=== PATIENT | male | born 1970 | race Caucasian/White ===

== ENCOUNTER 2017-05-31 12:47 | Emergency (ER) | payer OTHER ==
[~2017-05-31] VITALS: Ht 172.7 cm; Wt 98.0 kg
[~2017-05-31 12:47] MED LIST: ALBU90OI INH; ALBU90OI61 INH; ALPR.25 PO; ALPR.5 PO; ALPR1 PO; AMOCLA875 PO; ANTABUSE; ASPI325EC PO; ASPI81CH PO; Amitriptyline100 MG PO; Bactroban22 GM TOP; CEPH500 PO; CHLO10 PO; CHLO25 PO; CITA20; Cleocin HCl300 MG PO; DULO30; DULO30 PO; DULO60 PO; FURO20 PO; GABA300 PO; HYDACE5 PO; HYDPAM25 PO; HYDR1TAB94 PO; IBUP600 PO; IBUP800 PO; K-Dur20 MEQ PO; LITH300C; LORA.5 PO; LORA1 PO; LORA2; LORAZEPAM; MUSCLE RELAXER; NADO20 PO; NAPR500 PO; Norco 5-325 Ta1 EACH PO; OLAN10; OLAN10 PO; OLAN2.5 PO; OLAN5 PO; OMEP10ER; OMEP10ER PO; OMEP20ER PO; OMEP40CA12 PO; OXYACE5T PO; OXYASA5T PO; PENVK500 PO; POTCHL20ER PO; PROACE100 PO; PROM25 PO; Prilosec Otc20 MG PO; ROXICODONE5 MG PO; SILD50TA PO; THIA100 PO; TRAM50 PO; TRAZADONE; VITAMIN B12-FO1 EACH PO; Ventolin Soln3 ML INH; XANEX; Zyprexa10 MG PO; Zyprexa20 MG; [UNRECOGNIZED DRUG - REMARK]
[2017-05-31] MEDS ORDERED: Crutch1 EACH MISC (14:20)
[2017-10-21] MEDS ORDERED: QUET100 PO (13:37)
[2017-10-21] MEDS ORDERED: TOPI50 PO (13:37)
[2018-03-05] MEDS ORDERED: K-Dur 20 meq T20 MEQ PO (20:05)
== END 2017-05-31 14:31 | disposition home or self-care (01) ==
LOC: ER 12:47
DX: S93.324A Dislocation of tarsometatarsal joint of right foot, initial encounter (principal); F31.9 Bipolar disorder, unspecified; F41.9 Anxiety disorder, unspecified; J45.909 Unspecified asthma, uncomplicated; Z79.899 Other long term (current) drug therapy; Z79.82 Long term (current) use of aspirin; F17.200 Nicotine dependence, unspecified, uncomplicated; X58.XXXA Exposure to other specified factors, initial encounter
CPT/HCPCS: 73630; 99283

== ENCOUNTER 2017-10-28 17:04 | Emergency (ER) | payer OTHER ==
[~2017-10-28] VITALS: Ht 172.7 cm; Wt 72.6 kg
[~2017-10-28 17:04] MED LIST changes: +Crutch1 EACH MISC; +QUET100 PO; +TOPI50 PO
== END 2017-10-28 22:32 | disposition home or self-care (01) ==
LOC: ER 17:04
DX: S20.212A Contusion of left front wall of thorax, initial encounter (principal); Z79.899 Other long term (current) drug therapy; F31.9 Bipolar disorder, unspecified; F41.9 Anxiety disorder, unspecified; F17.210 Nicotine dependence, cigarettes, uncomplicated; Y04.2XXA Assault by strike against or bumped into by another person, initial encounter
CPT/HCPCS: 71045; 99283

== ENCOUNTER 2017-10-28 23:39 | Emergency (ER) | payer OTHER ==
[~2017-10-28] VITALS: Ht 172.7 cm; Wt 72.6 kg
== END 2017-10-29 06:46 | disposition left against medical advice (07) ==
LOC: ER 23:39
DX: Z53.21 Procedure and treatment not carried out due to patient leaving prior to being seen by health care provider (principal)

== ENCOUNTER 2017-10-31 11:50 | Emergency (ER) | payer OTHER ==
[~2017-10-31] VITALS: Ht 172.7 cm; Wt 74.8 kg
[2017-10-31] MEDS ORDERED: [UNRECOGNIZED DRUG - OTHER] TOP (12:12)
== END 2017-10-31 12:16 | disposition home or self-care (01) ==
LOC: ER 11:50
DX: B35.3 Tinea pedis (principal); Z79.899 Other long term (current) drug therapy; F31.9 Bipolar disorder, unspecified; F41.9 Anxiety disorder, unspecified; J45.909 Unspecified asthma, uncomplicated; F17.210 Nicotine dependence, cigarettes, uncomplicated
CPT/HCPCS: 99282

== ENCOUNTER → 2018-06-21 | Outpatient (CLI) | payer OTHER ==
[~2018-06-21] MED LIST changes: +K-Dur 20 meq T20 MEQ PO; +[UNRECOGNIZED DRUG - OTHER] TOP
[2018-06-21 16:43] LABS: Alanine Aminotransfer (ALT/SGP 25 U/L (12-78); Albumin, Blood 3.4 g/dL (3.4-5.0); Albumin/Globulin Ratio 0.9 (0.8-1.8); Alk Phos 83 U/L (50-136); Anion Gap 7 mmol/L (6-16); Aspartate Aminotrans (AST/SGOT 17 U/L (12-37); Bilirubin, Direct <0.1 mg/dL (0.0-0.3); Bilirubin, Total 0.3 mg/dL (0.1-1.0); Blood Urea Nitrogen 14 mg/dL (8-24); Bun/Creatinine Ratio 13.5 (12.0-20.0); CHOL/HDL RATIO 2.5; CO2, Blood 27 mmol/L (21-32); Calcium, Blood 8.7 mg/dL (8.5-10.1); Chloride, Blood 102 mmol/L (98-108); Cholesterol 161 mg/dL (50-200); Creatinine, Blood 1.04 mg/dL (0.60-1.20); Globulin, Blood 3.6 g/dL (2.2-4.0); Glomerular Filtration Rate >60 (60-); Glucose, Blood 169 mg/dL (70-99); HDL Cholesterol 64 mg/dL (>39); LDL/HDL RATIO 1.2; Low Density Lipoprotein Chol 76 mg/dL (0-110); Phosphorus, Blood 4.1 mg/dL (2.5-4.9); Potassium, Blood 4.5 mmol/L (3.5-5.5); Sodium, Blood 136 mmol/L (136-145); Triglycerides 107 mg/dL (30-160); Very Low Density Lipoprot Chol 21 mg/dL (6-32)
[2018-06-21 16:47] LABS: Bilirubin, Indirect Unable to Calculate mg/dL (0.1-0.7)
== END ==
LOC: LAB SHORT 16:07 → LAB 16:07
PROVIDERS: Registered Nurse
DX: Z51.81 Encounter for therapeutic drug level monitoring (principal); Z79.899 Other long term (current) drug therapy
CPT/HCPCS: 80053; 80061; 80178; 82248; 84100; 84443

== ENCOUNTER 2018-07-28 19:48 | Emergency (ER) | payer OTHER ==
[~2018-07-28] VITALS: Ht 172.7 cm; Wt 72.6 kg
[2018-07-28] MEDS ORDERED: Seroquel Xr300 MG PO (20:32)
[2018-07-28] MEDS ORDERED: Robaxin500 MG PO (21:28)
== END 2018-07-28 21:36 | disposition home or self-care (01) ==
LOC: ER 19:48
DX: S39.012A Strain of muscle, fascia and tendon of lower back, initial encounter (principal); X58.XXXA Exposure to other specified factors, initial encounter; Z79.899 Other long term (current) drug therapy; J45.909 Unspecified asthma, uncomplicated; F17.210 Nicotine dependence, cigarettes, uncomplicated
CPT/HCPCS: 96372; 99283-25; J1100

== ENCOUNTER 2018-08-07 15:12 | Inpatient (IN) | payer OTHER ==
[~2018-08-07] VITALS: Ht 172.7 cm; Wt 70.7 kg
[~2018-08-07 15:12] MED LIST changes: +Robaxin500 MG PO; +Seroquel Xr300 MG PO
[2018-08-07 16:06] LABS: BASOPHILS ABSOLUTE AUTO 0.07 K/mm3 (0.00-0.23); BASOPHILS PERCENT AUTO 1 % (0-2); EOSINOPHILS ABSOLUTE AUTO 0.05 K/mm3 (0.00-0.68); EOSINOPHILS PERCENT AUTO 1 % (0-6); Hematocrit 43.7 % (37.0-53.0); Hemoglobin 13.7 g/dL (13.5-17.5); IMMATURE GRAN ABSOLUTE AUTO 0.05 K/mm3 (0.00-0.10); IMMATURE GRAN PERCENT AUTO 1 % (0-1); LYMPHOCYTES ABSOLUTE AUTO 1.96 K/mm3 (0.84-5.20); LYMPHOCYTES PERCENT AUTO 20 % (21-46); MONOCYTES PERCENT AUTO 8 % (4-13); Mean Corpuscular HGB Conc 31.4 g/dL (31.5-36.5); Mean Corpuscular Volume 89 fL (80-100); NEUTROPHILS ABSOLUTE AUTO 7.14 K/mm3 (1.96-9.15); NEUTROPHILS PERCENT AUTO 71 % (41-73); Platelet Count 380 K/mm3 (150-400); RDW Coefficient Variation 19.8 % (11.7-14.2); RDW Standard Deviation 64.8 fL (35.1-46.3); Red Blood Cell Count 4.89 M/mm3 (4.30-5.90); White Blood Cell Count 10.07 K/mm3 (4.00-11.30)
[2018-08-07 16:28] LABS: Albumin, Blood 4.2 g/dL (3.4-5.0); Albumin/Globulin Ratio 1.1 (0.8-1.8); Bilirubin, Total 0.3 mg/dL (0.1-1.0); Bun/Creatinine Ratio 13.6 (12.0-20.0); Calcium, Blood 8.7 mg/dL (8.5-10.1); Creatinine, Blood 1.76 mg/dL (0.60-1.20); Globulin, Blood 3.9 g/dL (2.2-4.0); Potassium, Blood 3.8 mmol/L (3.5-5.5); Total Protein, Blood 8.1 g/dL (6.4-8.2)
[2018-08-07 21:03] LABS: Source, Urine Clean Catch
[2018-08-07 21:17] LABS: Appearance, Urine Clear (Clear); Blood, Urine 1+ (Neg); Color, Urine Amber (P-Yellow); Glucose Qualitative, Urine Neg (Neg); Ketones, Urine 2+ (Neg); Leukocyte Esterase, Urine 1+ (Neg); Nitrite, Urine Neg (Neg); Protein, Urine 2+ (Neg); Specific Gravity, Urine 1.025 (1.003-1.022); Urobilinogen, Urine NORM (Normal)
[2018-08-07 21:23] LABS: Bilirubin, Urine 1+ (Neg); Red Blood Cells, Urine 0-2 /hpf (0-2)
[2018-08-07 21:24] LABS: Bacteria Many /hpf; Hyaline Casts TNTC /lpf (0-2); Mucus Heavy (0-Heavy); Squamous Epithelial Cells Not Seen /hpf (Few)
[2018-08-07 21:33] LABS: U Amphetamine Screen DETECTED; U Methamphetamine Screen DETECTED
[2018-08-07 21:34] LABS: U Barbituate Screen Not Detected; U Benzodiazapine Screen Not Detected; U Buprenorphine Screen Not Detected; U Cannabinoids Screen DETECTED; U Cocaine Screen Not Detected; U Methadone Screen Not Detected; U Opiates Screen DETECTED; U Oxycodone Screen Not Detected; U Phencyclidine Screen Not Detected; U Propoxyphene Screen Not Detected
[2018-08-08 06:51] LABS: Hematocrit 34.3 % (37.0-53.0); Hemoglobin 11.2 g/dL (13.5-17.5); Mean Corpuscular HGB 28.6 pg (26.0-34.0); Mean Corpuscular HGB Conc 32.7 g/dL (31.5-36.5); Mean Corpuscular Volume 88 fL (80-100); Mean Platelet Volume 9.2 fL (9.1-12.4); Platelet Count 166 K/mm3 (150-400); RDW Coefficient Variation 19.9 % (11.7-14.2); RDW Standard Deviation 63.7 fL (35.1-46.3); Red Blood Cell Count 3.92 M/mm3 (4.30-5.90); White Blood Cell Count 3.88 K/mm3 (4.00-11.30)
[2018-08-08 07:22] LABS: Alanine Aminotransfer (ALT/SGP 28 U/L (12-78); Alk Phos 72 U/L (50-136); Anion Gap 8 mmol/L (6-16); Aspartate Aminotrans (AST/SGOT 32 U/L (12-37); Bilirubin, Total 0.6 mg/dL (0.1-1.0); Blood Urea Nitrogen 24 mg/dL (8-24); Bun/Creatinine Ratio 22.6 (12.0-20.0); CO2, Blood 24 mmol/L (21-32); Calcium, Blood 7.3 mg/dL (8.5-10.1); Chloride, Blood 105 mmol/L (98-108); Creatinine, Blood 1.06 mg/dL (0.60-1.20); Globulin, Blood 2.9 g/dL (2.2-4.0); Glomerular Filtration Rate >60 (60-); Glucose, Blood 116 mg/dL (70-99); Potassium, Blood 3.3 mmol/L (3.5-5.5); Sodium, Blood 137 mmol/L (136-145)
[2018-08-08 07:31] LABS: Total Protein, Blood 5.9 g/dL (6.4-8.2)
--- NOTE | 2018-08-08 19:42 | NUR ---
END OF SHIFT SUMMARY ASSUMED CARE OF PT AROUND 1600. PT TO ROOM VIA ER BED. REPORT GIVEN BY SOWMYA CARTAGENA. PT ORIENTED TO ROOM. ROOM CLEARED PER PROTOCOL, MANAGER RELATIONSHIP NOTIFIED OF NEED TO TURN CAMERA MONITORING ON, PT BELONGINGS REMOVED EXCEPT PHONE AND PRESSURE CONTROLLER. CIWA 5 UPON INITIAL ASSESMENT. ATIVAN ORDERS CLARIFIED WITH DR SAM. SCHEDULED ATIVAN DC'D, PRN R/T CIWA KEPT IN PLACE. PT STATES NO SI AT TIME OF ADMISSION TO UNIT BUT STATES IT COMES AND GOES. PT COOPERATIVE WITH STAFF. PT RESTING MAJORITY OF REMAINDER OF SHIFT.
--- NOTE | 2018-08-09 04:43 | NUR ---
SHIFT SUMMARY: PATIENT VERY IMPULSIVE, GETTING OOB WITHOUT USING CALL LIGHT, PULLED OUT IV SO HE COULD GO USE THE RESTROOM. PATIENT STILL REDIRECTABLE BUT SPEECH IS BECOMING DIFFICULT TO UNDERSTAND, VSS, CIWA RANGING FROM 11 TO 21. PATIENT RESPONDING WELL TO ATIVAN. NURSING ROUNDS INCREASED, ROOM CHECK COMPLETED WITH EACH ROUND, PATIENT BELONGINGS LOCKED IN DESIGNATED CABINET. ALL PROTOCOLS FOR SI AND CIWA OBSERVED. BED LOW AND LOCKED.
[2018-08-09 08:34] LABS: BASOPHILS ABSOLUTE AUTO 0.01 K/mm3 (0.00-0.23); BASOPHILS PERCENT AUTO 0 % (0-2); EOSINOPHILS ABSOLUTE AUTO 0.18 K/mm3 (0.00-0.68); EOSINOPHILS PERCENT AUTO 7 % (0-6); Hematocrit 34.6 % (37.0-53.0); Hemoglobin 10.9 g/dL (13.5-17.5); IMMATURE GRAN ABSOLUTE AUTO 0.01 K/mm3 (0.00-0.10); IMMATURE GRAN PERCENT AUTO 0 % (0-1); LYMPHOCYTES ABSOLUTE AUTO 0.81 K/mm3 (0.84-5.20); LYMPHOCYTES PERCENT AUTO 30 % (21-46); MONOCYTES PERCENT AUTO 8 % (4-13); Mean Corpuscular HGB 28.2 pg (26.0-34.0); Mean Corpuscular HGB Conc 31.5 g/dL (31.5-36.5); Mean Corpuscular Volume 89 fL (80-100); Mean Platelet Volume 9.4 fL (9.1-12.4); NEUTROPHILS ABSOLUTE AUTO 1.46 K/mm3 (1.96-9.15); NEUTROPHILS PERCENT AUTO 55 % (41-73); Platelet Count 198 K/mm3 (150-400); RDW Coefficient Variation 19.9 % (11.7-14.2); RDW Standard Deviation 64.6 fL (35.1-46.3); Red Blood Cell Count 3.87 M/mm3 (4.30-5.90); White Blood Cell Count 2.67 K/mm3 (4.00-11.30)
[2018-08-09 08:46] LABS: Albumin, Blood 2.8 g/dL (3.4-5.0); Anion Gap 5 mmol/L (6-16); Blood Urea Nitrogen 15 mg/dL (8-24); Bun/Creatinine Ratio 20.1 (12.0-20.0); CO2, Blood 25 mmol/L (21-32); Chloride, Blood 111 mmol/L (98-108); Creatinine, Blood 0.75 mg/dL (0.60-1.20); Glomerular Filtration Rate >60 (60-); Glucose, Blood 101 mg/dL (70-99); Phosphorus, Blood 2.4 mg/dL (2.5-4.9); Potassium, Blood 3.8 mmol/L (3.5-5.5); Sodium, Blood 141 mmol/L (136-145)
[2018-08-09 11:00] LABS: Percent Saturation 7.6 % (20.0-50.0)
--- NOTE | 2018-08-09 18:37 | NUR ---
SHIFT SUMMARY PT RESTING IN BED THROUGHOUT THE DAY. DENIES PAIN, DENIES SUICIDAL IDEATION. PT AWARE OF SUICIDE RESTRICTIONS AND SAFETY, VERBALIZES UNDERSTANDING. C/O JOINT AND BACK PAIN, RATING 4-7/10, PT REPOSITIONED NEEDED INDEPENDENTLY. LUNG SOUNDS CLEAR, NSR RATE 79 PER TELEMETRY. NON-PITTING EDEMA NOTED TO LEFT HAND, ICE APPLIED, ENCOURAGED PT TO ELEVATE HAND. DR. MELTON SAW PT TODAY AND RELEASED HIM FROM 2MD HOLD AND SUICIDE RISK. PT AWAITING PLACEMENT IN INPT REHAB. PT AMBULATING IN ROOM, TOOK A SHOWER THIS AFTERNOON, TOLERATED WELL. CIWA LEVEL 0-10 TODAY, MEDICATED PER EMAR. WILL CONTINUE TO MONITOR.
[2018-08-10 04:04] LABS: BASOPHILS ABSOLUTE AUTO 0.02 K/mm3 (0.00-0.23); BASOPHILS PERCENT AUTO 1 % (0-2); EOSINOPHILS ABSOLUTE AUTO 0.19 K/mm3 (0.00-0.68); EOSINOPHILS PERCENT AUTO 6 % (0-6); Hematocrit 35.3 % (37.0-53.0); Hemoglobin 11.1 g/dL (13.5-17.5); IMMATURE GRAN ABSOLUTE AUTO 0.02 K/mm3 (0.00-0.10); IMMATURE GRAN PERCENT AUTO 1 % (0-1); LYMPHOCYTES ABSOLUTE AUTO 1.04 K/mm3 (0.84-5.20); LYMPHOCYTES PERCENT AUTO 33 % (21-46); MONOCYTES ABSOLUTE AUTO 0.21 K/mm3 (0.16-1.47); MONOCYTES PERCENT AUTO 7 % (4-13); Mean Corpuscular HGB 28.9 pg (26.0-34.0); Mean Corpuscular HGB Conc 31.4 g/dL (31.5-36.5); Mean Corpuscular Volume 92 fL (80-100); Mean Platelet Volume 10.3 fL (9.1-12.4); NEUTROPHILS ABSOLUTE AUTO 1.65 K/mm3 (1.96-9.15); NEUTROPHILS PERCENT AUTO 53 % (41-73); Platelet Count 219 K/mm3 (150-400); RDW Standard Deviation 68.1 fL (35.1-46.3); Red Blood Cell Count 3.84 M/mm3 (4.30-5.90); White Blood Cell Count 3.13 K/mm3 (4.00-11.30)
[2018-08-10 04:19] LABS: Albumin, Blood 2.9 g/dL (3.4-5.0); Anion Gap 7 mmol/L (6-16); Blood Urea Nitrogen 17 mg/dL (8-24); CO2, Blood 24 mmol/L (21-32); Calcium, Blood 8.7 mg/dL (8.5-10.1); Chloride, Blood 110 mmol/L (98-108); Creatinine, Blood 0.74 mg/dL (0.60-1.20); Glomerular Filtration Rate >60 (60-); Glucose, Blood 116 mg/dL (70-99); Phosphorus, Blood 3.7 mg/dL (2.5-4.9); Potassium, Blood 4.1 mmol/L (3.5-5.5); Sodium, Blood 141 mmol/L (136-145)
--- NOTE | 2018-08-10 04:59 | NUR ---
SHIFT SUMMARY PT A&O X4, CALM AND COOPERATIVE W/OUT SIGNS OF ANXIETY, PAIN, OR AGITATION. PT DENIES SUICIDAL IDEATION. PT CIWA SCORE "1" T/O SHIFT. LUNG SOUNDS CLEAR T/O. SPO2 > 92% ON RA. MONITOR SHOWS NSR, HR 70'S. PT SLEEPING MAJORITY OF SHIFT, WAKES UP PLEASANTLY FOR CARE. WILL CONTINUE TO MONITOR AND PROVIDE CARE UNTIL REPORT OFF TO DAY SHIFT RN.
--- NOTE | 2018-08-10 09:35 | NUR ---
Assumed Care: Assumed care of pt at approx 0700. VSS. In no apparent sign of distress. Pt is A&Ox4, but c/o seeing and hearing "two figures" in room this AM when nobody was present in room. Pt c/o increasing symptoms of withdrawal from alcohol. Most recent CIWA score of 8. See shift assessment for detailed assessment. Currently resting in bed with call light within reach. denies any further questions, complaints or requests at this time. Will continue to monitor.
--- NOTE | 2018-08-10 15:12 | NUR ---
Transfer: Transferred pt at approx 1420. VSS. In no apparent sign of distress. Pt requesting something for back pain and orders received from Dr. Parks before transfer. Pt denies any questions, complaints or reqeusts at time of transfer.
--- NOTE | 2018-08-10 17:29 | NUR ---
RECEIVED TO RM [id number] FROM [facility] AT 1435 BY W/C. HE IS A&O. HE IS QUIET, SITTING STYLE ON THE BED. HE IS ROCKING BACK AND FORTH LIGHTLY. HE SAYS HIS PAIN IS STARTING TO IMPROVE IN HIS BACK AFTER A SHOWER, LIDOCAINE PATCH APPLIED AND SOME TYLENOL. ORIENTED TO THE ROOM.
--- NOTE | 2018-08-10 17:31 | NUR ---
HE HAS RECEIVED A DOSE OF LIBRIUM SINCE ARRIVAL. HE FELT HE NEEDED IT. IF HE HADN'T REQUESTED IT, I WOULD NOT HAVE NOTICED HIS ANXIETY YET. HE CONFIRMS HE IS CONFIDENTIAL.
--- NOTE | 2018-08-10 19:37 | NUR ---
HIS LAST CIWA WAS 7. HIS HIGHEST SCORE IS ANXIETY, THEN H/A. HE REMAINS PLEASANT AND COOPERATIVE.
--- NOTE | 2018-08-11 05:15 | NUR ---
HAT FINISHER SUMMARY NO ACUTE CHANGES THIS SHIFT. PT AAOX4 AND PLEASANT. INDEPENDENT IN ROOM. STABLE WITHDRAWAL WITH CIWA OF 7, MAINLY DUE TO HEADACHE AND ANXIETY. ANXIETY RELIEVED WITH BEDTIME ELAVIL AND SEROQUEL AND HEADACHE TREATED WITH TYLENOL. PT HAS SLEPT THROUGH THE NIGHT WITH NO COMPLAINTS. PT EAGER TO BE DISCHARGED TO AN INPATIENT REHAB FACILITY. VSS, WILL CONTINUE TO MONITOR.
[2018-08-11] MEDS ORDERED: Ferrous Sulfat325 M2 PO (15:17)
[2018-08-11] MEDS ORDERED: CYAN500 PO (15:17)
--- NOTE | 2018-08-11 15:38 | NUR ---
PATIENT DISCHARGE THE PATIENT WAS DISCHARGED HOME AFTER DISCHARGE INSTRUCTIONS WERE GIVEN TO THE PATIENT. THEW PATIEBNT WAS INSTRUCTED TO PICK HIS PRESCRIPTIONS AT [facility] REQUESTED AND TO FOLLOW UP WITH A PCP. THE PATIENT WALKED OUT OF THE HOSPITAL WITHOUT CONCERN OR COMPLAINT.
== END 2018-08-11 15:40 | disposition home or self-care (01) | DRG 897 ==
LOC: ER 15:12 → EOR 15:13 → PCU 15:13 → MEDS 08-10 14:29
PROVIDERS: Family Medicine; Internal Medicine; Physician Assistant; ADMIT Emergency Medicine
DX: F10.239 Alcohol dependence with withdrawal, unspecified (principal); D61.818 Other pancytopenia; F33.3 Major depressive disorder, recurrent, severe with psychotic symptoms; N17.9 Acute kidney failure, unspecified; R45.851 Suicidal ideations; E86.0 Dehydration; E87.6 Hypokalemia; F17.210 Nicotine dependence, cigarettes, uncomplicated; F19.10 Other psychoactive substance abuse, uncomplicated; F25.1 Schizoaffective disorder, depressive type; F31.9 Bipolar disorder, unspecified; I10 Essential (primary) hypertension; J45.909 Unspecified asthma, uncomplicated; E53.8 Deficiency of other specified B group vitamins; E61.1 Iron deficiency; Y90.2 Blood alcohol level of 40-59 mg/100 ml
CPT/HCPCS: 36415; 80053; 80069; 81001; 82607; 82728; 82746; 83540; 83550; 85025; 85027; 87086; 96361; 96365; 96366; 96372-59; 96375; 99285-25; G0378; G0480; J1630; J1650; J2060; J2405; J3475; J7030; J7042; Q3014

== ENCOUNTER 2018-09-19 09:26 | Emergency (ER) | payer OTHER ==
[~2018-09-19] VITALS: Ht 175.3 cm; Wt 72.6 kg
[~2018-09-19 09:26] MED LIST changes: +CYAN500 PO; +Ferrous Sulfat325 M2 PO
[2018-09-19] MEDS ORDERED: Ultram50 MG PO (12:00)
== END 2018-09-19 13:43 | disposition home or self-care (01) ==
LOC: ER 09:26
DX: R13.10 Dysphagia, unspecified (principal); R07.89 Other chest pain; W19.XXXA Unspecified fall, initial encounter; Z79.899 Other long term (current) drug therapy; F41.9 Anxiety disorder, unspecified; J45.909 Unspecified asthma, uncomplicated; F17.200 Nicotine dependence, unspecified, uncomplicated
CPT/HCPCS: 70360; 71100; 99283-25

== ENCOUNTER 2018-11-06 10:08 | Day surgery (SDC) | payer OTHER ==
[~2018-11-06] VITALS: Ht 175.3 cm; Wt 75.6 kg
[~2018-11-06 10:08] MED LIST changes: +ACET500 PO; +AMIT50 PO; +QUET200 PO; +Seroquel Xr150 MG PO; +Ultram50 MG PO
--- NOTE | 2018-11-06 11:46 | NUR ---
11/06/18 1145 Maye Azevedo FLUIDS OPEN WIDE PER DR. DOM Cunningham TO GIVE ONE LITER OF FLUID.
== END 2018-11-06 12:48 | disposition home or self-care (01) ==
LOC: ORSCSDS 10:08
PROVIDERS: Student in an Organized Health Care Education/Training Program
PROC: 0DB98ZX Excision of Duodenum, Via Natural or Artificial Opening Endoscopic, Diagnostic (ICD-10-PCS; principal; 2018-11-06 11:30)
PROC: 0DB68ZX Excision of Stomach, Via Natural or Artificial Opening Endoscopic, Diagnostic (ICD-10-PCS; principal; 2018-11-06 11:30)
PROC: 0DB58ZX Excision of Esophagus, Via Natural or Artificial Opening Endoscopic, Diagnostic (ICD-10-PCS; principal; 2018-11-06 11:30)
DX: K21.0 Gastro-esophageal reflux disease with esophagitis (principal); R13.10 Dysphagia, unspecified; K29.70 Gastritis, unspecified, without bleeding; K44.9 Diaphragmatic hernia without obstruction or gangrene; F17.210 Nicotine dependence, cigarettes, uncomplicated; J45.909 Unspecified asthma, uncomplicated; Z79.899 Other long term (current) drug therapy
CPT/HCPCS: 88305; 88312; 88341; 88342; J2704; J7120

== ENCOUNTER 2018-11-14 16:53 | Emergency (ER) | payer OTHER ==
[~2018-11-14] VITALS: Ht 175.3 cm; Wt 72.6 kg
[2018-11-14] MEDS ORDERED: CHLO25 PO (18:10)
== END 2018-11-14 18:27 | disposition home or self-care (01) ==
LOC: ER 16:53
DX: F10.239 Alcohol dependence with withdrawal, unspecified (principal); S90.31XA Contusion of right foot, initial encounter; X58.XXXA Exposure to other specified factors, initial encounter; Z88.8 Allergy status to other drugs, medicaments and biological substances; Z79.899 Other long term (current) drug therapy; F41.9 Anxiety disorder, unspecified; J45.909 Unspecified asthma, uncomplicated; F17.210 Nicotine dependence, cigarettes, uncomplicated
CPT/HCPCS: 73630; 99284-25

== ENCOUNTER 2018-11-19 05:56 | Emergency (ER) | payer OTHER ==
[~2018-11-19] VITALS: Ht 175.3 cm; Wt 74.8 kg
[2018-11-19] MEDS ORDERED: Naprosyn500 MG PO (07:28)
[2018-11-19] MEDS ORDERED: Cyclobenzaprine5 MG PO (07:28)
== END 2018-11-19 08:05 | disposition home or self-care (01) ==
LOC: ER 05:56
DX: G89.29 Other chronic pain (principal); M54.5 Low back pain; Z88.8 Allergy status to other drugs, medicaments and biological substances; Z79.899 Other long term (current) drug therapy; J45.909 Unspecified asthma, uncomplicated; F17.210 Nicotine dependence, cigarettes, uncomplicated
CPT/HCPCS: 99283

== ENCOUNTER 2018-11-25 20:13 | Emergency (ER) | payer OTHER ==
[~2018-11-25] VITALS: Ht 172.7 cm; Wt 72.6 kg
[~2018-11-25 20:13] MED LIST changes: +Cyclobenzaprine5 MG PO; +Naprosyn500 MG PO
[2018-11-25] MEDS ORDERED: FERSU300 PO (20:48)
[2018-11-25 20:50] LABS: BASOPHILS ABSOLUTE AUTO 0.03 K/mm3 (0.00-0.23); BASOPHILS PERCENT AUTO 1 % (0-2); EOSINOPHILS ABSOLUTE AUTO 0.15 K/mm3 (0.00-0.68); EOSINOPHILS PERCENT AUTO 3 % (0-6); Hematocrit 38.3 % (37.0-53.0); Hemoglobin 12.2 g/dL (13.5-17.5); IMMATURE GRAN ABSOLUTE AUTO 0.02 K/mm3 (0.00-0.10); IMMATURE GRAN PERCENT AUTO 0 % (0-1); LYMPHOCYTES ABSOLUTE AUTO 0.66 K/mm3 (0.84-5.20); LYMPHOCYTES PERCENT AUTO 11 % (21-46); MONOCYTES ABSOLUTE AUTO 0.56 K/mm3 (0.16-1.47); MONOCYTES PERCENT AUTO 9 % (4-13); Mean Corpuscular HGB Conc 31.9 g/dL (31.5-36.5); Mean Corpuscular Volume 91 fL (80-100); Mean Platelet Volume 10.1 fL (9.1-12.4); NEUTROPHILS ABSOLUTE AUTO 4.53 K/mm3 (1.96-9.15); NEUTROPHILS PERCENT AUTO 76 % (41-73); Platelet Count 230 K/mm3 (150-400); RDW Coefficient Variation 18.1 % (11.7-14.2); RDW Standard Deviation 60.5 fL (35.1-46.3); Red Blood Cell Count 4.21 M/mm3 (4.30-5.90); White Blood Cell Count 5.95 K/mm3 (4.00-11.30)
[2018-11-25 21:08] LABS: Alanine Aminotransfer (ALT/SGP 30 U/L (12-78); Albumin, Blood 3.6 g/dL (3.4-5.0); Albumin/Globulin Ratio 1.1 (0.8-1.8); Alk Phos 113 U/L (50-136); Anion Gap 10 mmol/L (6-16); Aspartate Aminotrans (AST/SGOT 31 U/L (12-37); Bilirubin, Total 0.4 mg/dL (0.1-1.0); Blood Urea Nitrogen 14 mg/dL (8-24); CO2, Blood 24 mmol/L (21-32); Calcium, Blood 8.6 mg/dL (8.5-10.1); Chloride, Blood 105 mmol/L (98-108); Creatinine, Blood 1.08 mg/dL (0.60-1.20); Globulin, Blood 3.4 g/dL (2.2-4.0); Glomerular Filtration Rate >60 (60-); Glucose, Blood 261 mg/dL (70-99); Potassium, Blood 2.9 mmol/L (3.5-5.5); Sodium, Blood 139 mmol/L (136-145)
[2018-11-25] MEDS ORDERED: POTCHL20ER PO (21:30)
== END 2018-11-25 21:40 | disposition home or self-care (01) ==
LOC: ER 20:13
PROVIDERS: Emergency Medicine
DX: F11.10 Opioid abuse, uncomplicated (principal); F15.10 Other stimulant abuse, uncomplicated; E87.6 Hypokalemia; R09.02 Hypoxemia; J45.909 Unspecified asthma, uncomplicated; I10 Essential (primary) hypertension; G89.29 Other chronic pain; F17.210 Nicotine dependence, cigarettes, uncomplicated
CPT/HCPCS: 36415; 71045; 80053; 85025; 93005; 93010; 99284-25

== ENCOUNTER 2018-12-16 20:25 | Observation (INO) | payer OTHER ==
[~2018-12-16] VITALS: Ht 172.7 cm; Wt 74.8 kg
[~2018-12-16 20:25] MED LIST changes: +FERSU300 PO
[2018-12-17 01:44] LABS: Source, Urine Clean Catch
[2018-12-17 01:48] LABS: Bilirubin, Urine Neg (Neg); Blood, Urine Neg (Neg); Glucose Qualitative, Urine Neg (Neg); Ketones, Urine Neg (Neg); Leukocyte Esterase, Urine Neg (Neg); Nitrite, Urine Neg (Neg); Protein, Urine Neg (Neg); Urobilinogen, Urine NORM (Normal); pH, Urine 6.5 (5.0-8.0)
[2018-12-17 01:52] LABS: Appearance, Urine Clear (Clear); Color, Urine Yellow (P-Yellow)
[2018-12-17 01:58] LABS: U Amphetamine Screen Not Detected; U Barbituate Screen Not Detected; U Benzodiazapine Screen DETECTED; U Cannabinoids Screen Not Detected; U Cocaine Screen Not Detected; U Methadone Screen Not Detected; U Methamphetamine Screen Not Detected; U Opiates Screen Not Detected; U Phencyclidine Screen Not Detected
[2018-12-17 01:59] LABS: U Buprenorphine Screen Not Detected; U Oxycodone Screen Not Detected; U Propoxyphene Screen Not Detected
[2018-12-17] MEDS ORDERED: Seroquel Xr300 MG PO (06:09)
== END 2018-12-17 08:40 | disposition home or self-care (01) ==
LOC: ER 20:25 → EOR 20:26
PROVIDERS: ADMIT Emergency Medicine
DX: F10.129 Alcohol abuse with intoxication, unspecified (principal); R45.851 Suicidal ideations; F17.210 Nicotine dependence, cigarettes, uncomplicated; Z79.899 Other long term (current) drug therapy; Z88.8 Allergy status to other drugs, medicaments and biological substances
CPT/HCPCS: 81003; 99285; G0378

== ENCOUNTER 2018-12-20 05:54 | Emergency (ER) | payer OTHER ==
[~2018-12-20] VITALS: Ht 175.3 cm; Wt 74.8 kg
== END 2018-12-20 06:44 | disposition home or self-care (01) ==
LOC: ER 05:54
DX: F41.9 Anxiety disorder, unspecified (principal); R45.1 Restlessness and agitation; J45.909 Unspecified asthma, uncomplicated; F17.210 Nicotine dependence, cigarettes, uncomplicated
CPT/HCPCS: 99283

== ENCOUNTER 2019-01-03 19:23 | Observation (INO) | payer OTHER ==
[~2019-01-03] VITALS: Ht 172.7 cm; Wt 74.8 kg
[2019-01-03 20:03] LABS: Source, Urine Clean Catch
[2019-01-03 20:11] LABS: Bilirubin, Urine Neg (Neg); Blood, Urine 1+ (Neg); Glucose Qualitative, Urine Neg (Neg); Ketones, Urine 3+ (Neg); Leukocyte Esterase, Urine Neg (Neg); Nitrite, Urine Neg (Neg); Protein, Urine 2+ (Neg); Specific Gravity, Urine 1.025 (1.003-1.022); Urobilinogen, Urine NORM (Normal)
[2019-01-03 20:22] LABS: U Amphetamine Screen DETECTED; U Barbituate Screen Not Detected; U Benzodiazapine Screen DETECTED; U Buprenorphine Screen Not Detected; U Cannabinoids Screen Not Detected; U Cocaine Screen Not Detected; U Methadone Screen Not Detected; U Methamphetamine Screen DETECTED; U Opiates Screen Not Detected; U Oxycodone Screen Not Detected; U Phencyclidine Screen Not Detected; U Propoxyphene Screen Not Detected
[2019-01-03 20:23] LABS: BASOPHILS ABSOLUTE AUTO 0.04 K/mm3 (0.00-0.23); BASOPHILS PERCENT AUTO 0 % (0-2); EOSINOPHILS ABSOLUTE AUTO 0.01 K/mm3 (0.00-0.68); EOSINOPHILS PERCENT AUTO 0 % (0-6); Hematocrit 37.7 % (37.0-53.0); IMMATURE GRAN ABSOLUTE AUTO 0.02 K/mm3 (0.00-0.10); IMMATURE GRAN PERCENT AUTO 0 % (0-1); LYMPHOCYTES ABSOLUTE AUTO 1.28 K/mm3 (0.84-5.20); LYMPHOCYTES PERCENT AUTO 14 % (21-46); MONOCYTES ABSOLUTE AUTO 0.75 K/mm3 (0.16-1.47); MONOCYTES PERCENT AUTO 8 % (4-13); Mean Corpuscular HGB 27.5 pg (26.0-34.0); Mean Corpuscular HGB Conc 31.8 g/dL (31.5-36.5); Mean Corpuscular Volume 87 fL (80-100); Mean Platelet Volume 9.5 fL (9.1-12.4); NEUTROPHILS ABSOLUTE AUTO 7.15 K/mm3 (1.96-9.15); NEUTROPHILS PERCENT AUTO 77 % (41-73); Platelet Count 229 K/mm3 (150-400); RDW Coefficient Variation 20.3 % (11.7-14.2); RDW Standard Deviation 64.3 fL (35.1-46.3); Red Blood Cell Count 4.36 M/mm3 (4.30-5.90); White Blood Cell Count 9.25 K/mm3 (4.00-11.30)
[2019-01-03 20:32] LABS: Appearance, Urine Clear (Clear); Bacteria Not Seen /hpf; Color, Urine Yellow (P-Yellow); Red Blood Cells, Urine 0-2 /hpf (0-2); Squamous Epithelial Cells Rare /hpf (Few); White Blood Cells, Urine Not Seen /hpf (0-5)
[2019-01-03 20:46] LABS: Alanine Aminotransfer (ALT/SGP 25 U/L (12-78); Albumin, Blood 4.3 g/dL (3.4-5.0); Alk Phos 99 U/L (50-136); Anion Gap 13 mmol/L (6-16); Aspartate Aminotrans (AST/SGOT 41 U/L (12-37); Bilirubin, Total 0.6 mg/dL (0.1-1.0); Blood Urea Nitrogen 25 mg/dL (8-24); Bun/Creatinine Ratio 28.9 (12.0-20.0); CO2, Blood 22 mmol/L (21-32); Calcium, Blood 8.4 mg/dL (8.5-10.1); Chloride, Blood 106 mmol/L (98-108); Creatinine, Blood 0.87 mg/dL (0.60-1.20); Ethanol (Alcohol), Blood, Med 58 mg/dL; Globulin, Blood 4.1 g/dL (2.2-4.0); Glomerular Filtration Rate >60 (60-); Glucose, Blood 93 mg/dL (70-99); Potassium, Blood 3.1 mmol/L (3.5-5.5); Salicylate <1.7 mg/dL (2.8-20.0); Sodium, Blood 141 mmol/L (136-145); Total Protein, Blood 8.4 g/dL (6.4-8.2)
[2019-01-03 21:03] LABS: Acetaminophen, Random <2.0 ug/mL (10.0-30.0)
[2019-01-03] MEDS ORDERED: QUETIAPINE FUM150 MG PO (21:17)
[2019-01-04] MEDS ORDERED: QUET300 PO (07:26)
== END 2019-01-04 07:30 | disposition home or self-care (01) ==
LOC: ER 19:23 → EOR 19:24
PROVIDERS: Physician Assistant; ADMIT Emergency Medicine
DX: R45.851 Suicidal ideations (principal); F15.10 Other stimulant abuse, uncomplicated; F10.129 Alcohol abuse with intoxication, unspecified; G47.419 Narcolepsy without cataplexy; F20.9 Schizophrenia, unspecified; F32.9 Major depressive disorder, single episode, unspecified; F41.9 Anxiety disorder, unspecified; J45.909 Unspecified asthma, uncomplicated; F17.210 Nicotine dependence, cigarettes, uncomplicated; Z79.899 Other long term (current) drug therapy; Z88.8 Allergy status to other drugs, medicaments and biological substances
CPT/HCPCS: 36415; 80053; 81001; 84443; 85025; 99285; G0378; G0480

== ENCOUNTER 2019-03-28 16:28 | Emergency (ER) | payer OTHER ==
[~2019-03-28] VITALS: Ht 172.7 cm; Wt 74.8 kg
[~2019-03-28 16:28] MED LIST changes: +QUET300 PO; +QUETIAPINE FUM150 MG PO
[2019-03-28] MEDS ORDERED: IBUP800 PO (18:45)
== END 2019-03-28 19:16 | disposition home or self-care (01) ==
LOC: ER 16:28
DX: M77.12 Lateral epicondylitis, left elbow (principal); F31.9 Bipolar disorder, unspecified; I10 Essential (primary) hypertension; F41.9 Anxiety disorder, unspecified; F25.9 Schizoaffective disorder, unspecified; F17.210 Nicotine dependence, cigarettes, uncomplicated; J45.909 Unspecified asthma, uncomplicated; Z79.899 Other long term (current) drug therapy
CPT/HCPCS: 73080; 99283-25

== ENCOUNTER 2019-04-16 17:55 | Emergency (ER) | payer OTHER ==
[~2019-04-16] VITALS: Ht 177.8 cm; Wt 74.8 kg
== END 2019-04-17 00:14 | disposition home or self-care (01) ==
LOC: ER 17:55
DX: F19.129 Other psychoactive substance abuse with intoxication, unspecified (principal); Z79.899 Other long term (current) drug therapy; F31.9 Bipolar disorder, unspecified; I10 Essential (primary) hypertension; F41.9 Anxiety disorder, unspecified; J45.909 Unspecified asthma, uncomplicated; F17.210 Nicotine dependence, cigarettes, uncomplicated
CPT/HCPCS: 99285

== ENCOUNTER 2019-05-13 08:33 | Emergency (ER) | payer OTHER ==
[~2019-05-13] VITALS: Ht 175.3 cm; Wt 73.5 kg
[2019-05-13] MEDS ORDERED: OLAN20 MM (08:53)
[2019-05-13] MEDS ORDERED: OMEPRAZOLE20 MG PO (08:53)
[2019-05-13] MEDS ORDERED: Augmentin 875-1 EACH PO (09:33)
[2019-05-13] MEDS ORDERED: Norco 5-325 Ta1 EACH PO (09:33)
== END 2019-05-13 09:42 | disposition home or self-care (01) ==
LOC: ER 08:33
DX: K02.9 Dental caries, unspecified (principal); Z79.899 Other long term (current) drug therapy; F31.9 Bipolar disorder, unspecified; I10 Essential (primary) hypertension; F41.9 Anxiety disorder, unspecified; F25.9 Schizoaffective disorder, unspecified; F17.210 Nicotine dependence, cigarettes, uncomplicated
CPT/HCPCS: 99282

== ENCOUNTER 2019-05-16 22:27 | Emergency (ER) | payer OTHER ==
[~2019-05-16] VITALS: Ht 175.3 cm; Wt 74.8 kg
[~2019-05-16 22:27] MED LIST changes: +Augmentin 875-1 EACH PO; +OLAN20 MM; +OMEPRAZOLE20 MG PO
[2019-05-16 23:34] LABS: BASOPHILS ABSOLUTE AUTO 0.02 K/mm3 (0.00-0.23); BASOPHILS PERCENT AUTO 0 % (0-2); EOSINOPHILS ABSOLUTE AUTO 0.14 K/mm3 (0.00-0.68); EOSINOPHILS PERCENT AUTO 2 % (0-6); Hematocrit 39.9 % (37.0-53.0); Hemoglobin 13.1 g/dL (13.5-17.5); IMMATURE GRAN ABSOLUTE AUTO 0.01 K/mm3 (0.00-0.10); IMMATURE GRAN PERCENT AUTO 0 % (0-1); LYMPHOCYTES ABSOLUTE AUTO 1.25 K/mm3 (0.84-5.20); LYMPHOCYTES PERCENT AUTO 20 % (21-46); MONOCYTES ABSOLUTE AUTO 0.36 K/mm3 (0.16-1.47); MONOCYTES PERCENT AUTO 6 % (4-13); Mean Corpuscular HGB 30.3 pg (26.0-34.0); Mean Corpuscular HGB Conc 32.8 g/dL (31.5-36.5); Mean Corpuscular Volume 92 fL (80-100); Mean Platelet Volume 9.6 fL (9.1-12.4); NEUTROPHILS ABSOLUTE AUTO 4.49 K/mm3 (1.96-9.15); NEUTROPHILS PERCENT AUTO 72 % (41-73); Platelet Count 193 K/mm3 (150-400); RDW Coefficient Variation 14.6 % (11.7-14.2); RDW Standard Deviation 50.6 fL (35.1-46.3); Red Blood Cell Count 4.32 M/mm3 (4.30-5.90); White Blood Cell Count 6.27 K/mm3 (4.00-11.30)
[2019-05-16 23:53] LABS: Alanine Aminotransfer (ALT/SGP 20 U/L (12-78); Alk Phos 114 U/L (50-136); Anion Gap 5 mmol/L (6-16); Aspartate Aminotrans (AST/SGOT 16 U/L (12-37); Bilirubin, Total 0.2 mg/dL (0.1-1.0); Blood Urea Nitrogen 19 mg/dL (8-24); Bun/Creatinine Ratio 15.3 (12.0-20.0); CO2, Blood 28 mmol/L (21-32); Chloride, Blood 103 mmol/L (98-108); Creatinine, Blood 1.24 mg/dL (0.60-1.20); Globulin, Blood 4.1 g/dL (2.2-4.0); Glomerular Filtration Rate >60 (60-); Glucose, Blood 126 mg/dL (70-99); Potassium, Blood 3.8 mmol/L (3.5-5.5); Sodium, Blood 136 mmol/L (136-145); Total Protein, Blood 8.1 g/dL (6.4-8.2)
[2019-05-17] MEDS ORDERED: PROM25 PO (00:39)
[2019-05-17] MEDS ORDERED: Bentyl20 MG PO (00:39)
== END 2019-05-17 00:51 | disposition home or self-care (01) ==
LOC: ER 22:27
PROVIDERS: Emergency Medicine
DX: R10.9 Unspecified abdominal pain (principal); R11.2 Nausea with vomiting, unspecified; F17.210 Nicotine dependence, cigarettes, uncomplicated
CPT/HCPCS: 36415; 80053; 83690; 85025; 96361; 96374; 96375; 99284-25; J1885; J2405; J7120

== ENCOUNTER 2019-07-18 15:18 | Observation (INO) | payer OTHER ==
[~2019-07-18] VITALS: Ht 172.7 cm; Wt 74.3 kg
[~2019-07-18 15:18] MED LIST changes: +Bentyl20 MG PO
[2019-07-18 16:29] LABS: BASOPHILS ABSOLUTE AUTO 0.01 K/mm3 (0.00-0.23); BASOPHILS PERCENT AUTO 0 % (0-2); EOSINOPHILS ABSOLUTE AUTO 0.07 K/mm3 (0.00-0.68); EOSINOPHILS PERCENT AUTO 2 % (0-6); Hematocrit 39.6 % (37.0-53.0); IMMATURE GRAN ABSOLUTE AUTO 0.01 K/mm3 (0.00-0.10); IMMATURE GRAN PERCENT AUTO 0 % (0-1); LYMPHOCYTES ABSOLUTE AUTO 1.02 K/mm3 (0.84-5.20); LYMPHOCYTES PERCENT AUTO 29 % (21-46); MONOCYTES ABSOLUTE AUTO 0.15 K/mm3 (0.16-1.47); MONOCYTES PERCENT AUTO 4 % (4-13); Mean Corpuscular HGB 29.8 pg (26.0-34.0); Mean Corpuscular HGB Conc 32.8 g/dL (31.5-36.5); Mean Corpuscular Volume 91 fL (80-100); Mean Platelet Volume 10.4 fL (9.1-12.4); NEUTROPHILS ABSOLUTE AUTO 2.29 K/mm3 (1.96-9.15); NEUTROPHILS PERCENT AUTO 65 % (41-73); Platelet Count 153 K/mm3 (150-400); RDW Standard Deviation 50.2 fL (35.1-46.3); Red Blood Cell Count 4.36 M/mm3 (4.30-5.90); White Blood Cell Count 3.55 K/mm3 (4.00-11.30)
[2019-07-18 16:57] LABS: Alanine Aminotransfer (ALT/SGP 16 U/L (12-78); Albumin, Blood 3.9 g/dL (3.4-5.0); Alk Phos 80 U/L (50-136); Anion Gap 8 mmol/L (6-16); Aspartate Aminotrans (AST/SGOT 15 U/L (12-37); Bilirubin, Total 0.3 mg/dL (0.1-1.0); Blood Urea Nitrogen 14 mg/dL (8-24); Bun/Creatinine Ratio 16.8 (12.0-20.0); CO2, Blood 24 mmol/L (21-32); Calcium, Blood 8.9 mg/dL (8.5-10.1); Chloride, Blood 109 mmol/L (98-108); Creatinine, Blood 0.83 mg/dL (0.60-1.20); Ethanol (Alcohol), Blood, Med 251 mg/dL; Globulin, Blood 3.8 g/dL (2.2-4.0); Glomerular Filtration Rate >60 (60-); Glucose, Blood 159 mg/dL (70-99); Potassium, Blood 3.5 mmol/L (3.5-5.5); Sodium, Blood 141 mmol/L (136-145); Thyroxine (T4) 7.6 ug/dL (4.5-12.1); Total Protein, Blood 7.7 g/dL (6.4-8.2)
[2019-07-18 16:58] LABS: Acetaminophen, Random <2.0 ug/mL (10.0-30.0)
[2019-07-18 17:07] LABS: Source, Urine Clean Catch
[2019-07-18 17:39] LABS: Bilirubin, Urine Neg (Neg); Blood, Urine Neg (Neg); Glucose Qualitative, Urine Neg (Neg); Ketones, Urine Neg (Neg); Leukocyte Esterase, Urine Neg (Neg); Nitrite, Urine Neg (Neg); Protein, Urine Neg (Neg); Specific Gravity, Urine 1.005 (1.003-1.022); Urobilinogen, Urine NORM (Normal)
[2019-07-18 17:44] LABS: Appearance, Urine Clear (Clear); Color, Urine Pale Yellow (P-Yellow)
[2019-07-18 17:53] LABS: U Amphetamine Screen Not Detected; U Barbituate Screen Not Detected; U Benzodiazapine Screen Not Detected; U Buprenorphine Screen Not Detected; U Cannabinoids Screen DETECTED; U Cocaine Screen Not Detected; U Methadone Screen Not Detected; U Methamphetamine Screen DETECTED; U Opiates Screen Not Detected; U Oxycodone Screen Not Detected; U Phencyclidine Screen Not Detected; U Propoxyphene Screen Not Detected
--- NOTE | 2019-07-18 23:36 | NUR ---
ASSUMED CARE NOTE: ASSUMED CARE OF PT @ 2225. PT ARRIVED TO THE UNIT VIA STRETCHER. PT REQUIRED 1 PERSON ASSISTANCE TO TRANSFER TO HOSPITAL BED. PT HAS UNSTEADY GAIT. PT IS ALERT AND ORIENTED. IS ABLE TO FOLLOW DIRECTIONS, HE KNOWS WHERE HE IS AND WHY HE IS HERE. PT STATES " I TOOK ALOT OF MEDICATIONS TO KILL MYSELF, DON'T KNOW HOW MUCH OR WHAT, I JUST WANT MY LIFE TO END" PT STATES HE IS DEPRESSED AND DISAPPOINTED IN HIMSELF. PT IS HIGH-RISK FOR SUICIDE HE STATED A PLAN " I AM GOING TO STRANGLE MYSELF, I WILL LEAVE AND DO A LETHAL DOSE OF HEROIN". 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 PT IS IN SINUS TACH WITH HR @ 113. PT DENIES ANY CHEST PAIN AT THIS TIME. PT DENIES NAUSEA AND VOMITING. PT C/O HEADACHE. POSION CONTROL WAS UPDATED. WILL PLACE PT ON 1:1 SITTER.
[2019-07-19 04:08] LABS: Alanine Aminotransfer (ALT/SGP 13 U/L (12-78); Albumin, Blood 3.3 g/dL (3.4-5.0); Alk Phos 67 U/L (50-136); Anion Gap 6 mmol/L (6-16); Aspartate Aminotrans (AST/SGOT 14 U/L (12-37); Bilirubin, Total 0.3 mg/dL (0.1-1.0); Blood Urea Nitrogen 15 mg/dL (8-24); Bun/Creatinine Ratio 15.3 (12.0-20.0); CO2, Blood 28 mmol/L (21-32); Calcium, Blood 8.4 mg/dL (8.5-10.1); Chloride, Blood 108 mmol/L (98-108); Creatinine, Blood 0.98 mg/dL (0.60-1.20); Globulin, Blood 3.3 g/dL (2.2-4.0); Glomerular Filtration Rate >60 (60-); Glucose, Blood 115 mg/dL (70-99); Potassium, Blood 3.9 mmol/L (3.5-5.5); Sodium, Blood 142 mmol/L (136-145); Total Protein, Blood 6.6 g/dL (6.4-8.2)
--- NOTE | 2019-07-19 05:51 | NUR ---
SHIFT SUMMARY: PT REMAINS ALERT AND ORIENTEDX3. PT CONTINUES TO BE ON RA WITH SPO2 ABOVE 95. PT IS IN NSR WITH HR IN THE 90'S. PT HAS BEEN C/O HEADACHE, DR. FLEMING AWARE. PT HAS BEEN C/O SHAKING AND RESTLESSNESS. CIWA 5. PT HAS BEEN USING URINAL AT BEDSIDE. PT HAS A 1:1 SITTER. LACTATED RINGERS @ 125ML/HR. BED AT LOWEST LEVEL.
--- NOTE | 2019-07-19 11:33 | NUR ---
CARE ASSUMED ASSESSMENT COMPLETED. PT ALERT, ORIENTED X4, AFFECT FLAT, COOPERATIVE WITH CARE. PT ADMITS TO ACTIVELY BEING SUICIDAL, STATES HE NO LONGER HAS A PLAN IN PLACE. REMOTE MONITORING AND 1:[address]. PT RESTING IN BED, AGREES TO REMAIN IN HOSPITAL AT THIS TIME. VSS, PT HAD SOME BREAKFAST AND TOLERATED WELL, VOIDING WITHOUT DIFFICULTY. MEDICATED WITH TYLENOL PER NEW ORDERS FOR HEADACHE, NICOTINE PATCH ADMINISTERED. PT DENIES OTHER NEEDS, REMAINS CALM AND COOPERATIVE WITH CARE. [facility] FOR SAFETY PLAN, DR. PARKS IN TO ASSESS.
--- NOTE | 2019-07-19 12:19 | NUR ---
UPDATE SAFETY PLAN COMPLETED BY [facility]. PT'S VS REMAIN STABLE, EATING LUNCH AT THIS TIME, PLEASANT AND COOPERATIVE. POISON CONTROL UPDATED, CASE CLOSED. PT MEDICATED WITH ATIVAN FOR MILD ANXIETY, DENIES OTHER NEEDS. MONITORING AND SUICIDE PRECAUTIONS REMAIN IN PLACE.
--- NOTE | 2019-07-19 15:55 | NUR ---
Safety Plan completedwith some blank areas due to patient unable to identify thoughts/feelings leading to his Od. Pt reports [facility] [place] yesterday and received a medication change. He did drink a bottle of vodka prior to his report of taking an OD of his presription meds. He is unable to be clear about what he took, but did say his intention was to kill himself. He is upset he is 49, lives wih his parents, has no recycle driver license doesnt sleep well, and cant often "get to town" as they live 17 miles out. He reports he worked for the [employer] until 2000. 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 He has w daughters and 1 son. He does use future reference stating he wants to visit his daughterin senior living. He was psositive for meth but says he has not used recently. He has used [facility] in the past, and said he was an [facility] patient with them. He said he ended up being "friends with his therapist", so quit seeing them professionally. He reports he is diagnosed as schizoaffective. He has a 1:1 sitter due to high risk assessment for suicide. He says he has completed safety plan before when at [facility]. The patient may be more ill than he billts, as [facility] patients are often very ill individuals. He reports he is an alcoholic. His parents came to visit him during this interveiw, so the Plan was completed in 2 sessions today.
--- NOTE | 2019-07-19 16:29 | NUR ---
UPDATE PT RESTING IN BED, DENIES C/O AT THIS TIME, DENIES CURRENT HOMICIDAL OR SUICIDAL IDEATION, PT PLEASANT AND COOPERATIVE, THOUGH REMAINS FLAT AFFECTED. PT SITTING UP IN BED WATCHING TV, VSS, SNACK GIVEN. MESSAGE LEFT FOR DR. GOVEA INQUIRING ABOUT TIME OF CONSULT.
--- NOTE | 2019-07-19 17:42 | NUR ---
PROVIDER VISIT DR. GOVEA IN TO SEE PATIENT, PT NOW MODERATE SUICIDE RISK, 1:1 MONITORING DC'D, VIDEO MONITORING CONTINUES. PT NOW ON 48 HOUR DRUG AND ALCOHOL HOLD PER DR. GOVEA. NO INPATIENT PSYCH TREATMENT RECOMMENDED AT THIS TIME. PT SITTING IN BED EATING DINNER, AWARE OF PLAN OF CARE AND AGREEABLE, CONTINUES TO DENY SI.
--- NOTE | 2019-07-19 18:36 | NUR ---
END OF SHIFT PT PLEASANT AND COOPERATIVE T/O SHIFT, AFFECT REMAINS FLAT. PT DENIES SI/HI AT THIS TIME, IS SITTING UP IN BED WATCHING TV, DENIES NEEDS OR C/O. VSS, CAMERA MONITORING CONTINUES. PT TOLERATING PO WITHOUT DIFFICULTY, NO AGITATION/RESTLESSNESS NOTED AFTER ATIVAN ADMINISTERED. STATUS CHANGED TO PCU. CIWA SCORES MINIMAL TODAY. REPORT TO ONCOMING SHIFT.
--- NOTE | 2019-07-19 20:00 | NUR ---
ASSUMED CARE NOTE: ASSUMED CARE OF PT @ 1900, RECEVIED REPORT FROM KALANI CARTAGENA. PT IS A/OX3, PT IS COOPRATIVE AND FOLLOWING DIRECTIONS. PT IS CURRENTLY ON RA WITH SPO2 OF 97%, LUNG SOUNDS ARE CLEAR T/O. PT IN NSR W/ HR @ 79. PT DENIES ANY PAIN, N/V, AT THIS TIME. NO TREMORS CAN BE FELT OR SEEN. PT DENIES HAVING HALLUCINATIONS. PT DENIES HAVING SI. PT HAS BEEN USING URINAL AT BEDSIDE. BED AT LOWEST LEVEL. CALL LIGHT WITHIN REACH. PT WILL BE MOVING TO PCU BED SHORTLY.
--- NOTE | 2019-07-19 22:29 | NUR ---
ASSUMPTION OF CARE 2144 ROOM MITIGATION COMPLETE. RECIEVED REPORT FROM YESSY CARTAGENA, ICU. PATIENT ARRIVED TO [facility] @ APPROXIMATELY 2144. A/O, ABLE TO MAKE NEEDS KNOWN. NO NOTED N/V, TREMORS VISUAL/FELT, NO SWEATING, NO TACTILE/VISUAL/AUDITORY DISTURBANCES, NO HEADACHE AND NO AGITATION. STATES MILDLY ANXIOUS. NO ACUTE CHANGES AT THIS TIME. APPEARS TO BED RESTING. BED IN LOWEST POSTION. SHORT CALL LIGHT SET UP. [facility].
--- NOTE | 2019-07-20 06:35 | NUR ---
SHIFT SUMMARY A/O, ABLE TO MAKE NEEDS KNOWN. COOPERATIVE WITH CARE. ANSWERS QUESTIONS APPROPRIATELY. UP /c SBA TO BATHROOM. NO C/O PAIN/DISCOMFORT. STATES ANXIETY THIS AM IS GETTING BETTER. DENIES VISUAL/AUDITORY/TACTILE DISTURBANCES, N/V, NO VISUAL/FELT TREMORS, NO SWEATS OR HEADACHES. APPEARED TO REST MUCH OF SHIFT. VSS/AFEBRILE. NO ACUTE CHANGES SINCE ARRIVAL TO PCU. BED IN LOWEST POSITION; ALARM ON. WCTM. REPORT TO ONCOMING RN.
--- NOTE | 2019-07-20 08:00 | NUR ---
PT DOING WELL THIS AM, STATES HE FEELS GOOD, IS HOPING TO BE DISCHARGED TODAY, NO FEELINGS OF S.I. A/OX3, PLEASANT AND COOPERATIVE WITH CARE, DENIES ANY COMPLAINTS, CALL LIGHT IN REACH. IS INDEP IN ROOM.
--- NOTE | 2019-07-20 12:31 | NUR ---
PT HAS BEEN DISCHARGED TO HOME, WITH APPT TODAY AT 1400, WENT OVER INSTRUCTIONS WITH HIM, HE VERBALIZED UNDERSTANDING, IV REMOVED INTACT, LEFT VIA AMBUALATION WITH HOME ENERGY CONSULTANT IN ATTENDENCE.
== END 2019-07-20 12:30 | disposition home or self-care (01) ==
LOC: ER 15:18 → ICUE 15:19 → PCU 07-19 21:37
PROVIDERS: Physician Assistant; ADMIT Internal Medicine
DX: T43.592A Poisoning by other antipsychotics and neuroleptics, intentional self-harm, initial encounter (principal); T51.0X2A Toxic effect of ethanol, intentional self-harm, initial encounter; F10.129 Alcohol abuse with intoxication, unspecified; F31.9 Bipolar disorder, unspecified; J44.9 Chronic obstructive pulmonary disease, unspecified; F17.210 Nicotine dependence, cigarettes, uncomplicated; R65.10 Systemic inflammatory response syndrome (SIRS) of non-infectious origin without acute organ dysfunction; F25.9 Schizoaffective disorder, unspecified; I10 Essential (primary) hypertension; Z86.59 Personal history of other mental and behavioral disorders; Z87.19 Personal history of other diseases of the digestive system; Z88.8 Allergy status to other drugs, medicaments and biological substances; Z79.899 Other long term (current) drug therapy; Y90.8 Blood alcohol level of 240 mg/100 ml or more
CPT/HCPCS: 36415; 80053; 81003; 83735; 84436; 85025; 93005; 93010; 96361; 96365; 96366; 96372; 96375; 99285-25; A9270; C9113; G0378; G0480; J1650; J2060; J3411; J3475; J7042; J7120

== ENCOUNTER 2019-09-20 08:34 | Inpatient (IN) | payer OTHER ==
[~2019-09-20] VITALS: Ht 170.2 cm; Wt 74.7 kg
[~2019-09-20 08:34] MED LIST changes: -OLAN20 MM; +OLAN20 PO
[2019-09-20] MEDS ORDERED: Amphetamine Sal30 MG (09:36)
[2019-09-20 09:47] LABS: BASOPHILS ABSOLUTE AUTO 0.02 K/mm3 (0.00-0.23); BASOPHILS PERCENT AUTO 0 % (0-2); EOSINOPHILS ABSOLUTE AUTO 0.11 K/mm3 (0.00-0.68); EOSINOPHILS PERCENT AUTO 2 % (0-6); Hematocrit 28.3 % (37.0-53.0); Hemoglobin 9.6 g/dL (13.5-17.5); IMMATURE GRAN ABSOLUTE AUTO 0.03 K/mm3 (0.00-0.10); IMMATURE GRAN PERCENT AUTO 1 % (0-1); LYMPHOCYTES ABSOLUTE AUTO 0.99 K/mm3 (0.84-5.20); LYMPHOCYTES PERCENT AUTO 19 % (21-46); MONOCYTES PERCENT AUTO 4 % (4-13); Mean Corpuscular HGB Conc 33.9 g/dL (31.5-36.5); Mean Corpuscular Volume 88 fL (80-100); Mean Platelet Volume 10.3 fL (9.1-12.4); NEUTROPHILS ABSOLUTE AUTO 3.74 K/mm3 (1.96-9.15); NEUTROPHILS PERCENT AUTO 74 % (41-73); Platelet Count 163 K/mm3 (150-400); RDW Coefficient Variation 13.8 % (11.7-14.2); RDW Standard Deviation 44.8 fL (35.1-46.3); White Blood Cell Count 5.09 K/mm3 (4.00-11.30)
[2019-09-20 10:07] LABS: Alanine Aminotransfer (ALT/SGP 24 U/L (12-78); Albumin, Blood 3.6 g/dL (3.4-5.0); Albumin/Globulin Ratio 1.1 (0.8-1.8); Alk Phos 62 U/L (50-136); Anion Gap 6 mmol/L (6-16); Aspartate Aminotrans (AST/SGOT 13 U/L (12-37); Bilirubin, Total 0.4 mg/dL (0.1-1.0); Blood Urea Nitrogen 32 mg/dL (8-24); Bun/Creatinine Ratio 33.3 (12.0-20.0); CO2, Blood 28 mmol/L (21-32); Calcium, Blood 8.1 mg/dL (8.5-10.1); Chloride, Blood 103 mmol/L (98-108); Creatinine, Blood 0.96 mg/dL (0.60-1.20); Globulin, Blood 3.2 g/dL (2.2-4.0); Glomerular Filtration Rate >60 (60-); Glucose, Blood 149 mg/dL (70-99); Potassium, Blood 3.5 mmol/L (3.5-5.5); Sodium, Blood 137 mmol/L (136-145); Total Protein, Blood 6.8 g/dL (6.4-8.2); Troponin I <0.015 ng/mL (0.000-0.040)
[2019-09-20] MEDS ORDERED: Amphetamine Sal30 MG PO (11:41)
--- NOTE | 2019-09-20 13:21 | NUR ---
INITIAL ASSESSMENT PATIENT ALERT AND ORIENTED X 4, LIGHT-HEADED WHEN STANDS UP. PATIENT ANXIOUS. CIWA OF 10. PRN LIBRUIM GIVEN. PATIENT INDEPENDENT IN BED. BED ALARM ON. PATIENT COMPLAINS OF HEADACHE AND STOMACH. PRN TYLENOL GIVEN. PATIENT AFEBRILE. PATIENT SATTING 90% AND GREATER ON RA. LUNGS WHEEZY T/O. DENIES COUGH. PATIENT IN SR, HR IN THE 80S. BP STABLE. PULSES STRONG. NO EDEMA NOTED. SCDS PLACED. ABDOMEN SOFT, NONDISTENDED, TENDER TO PALPATION, WITH HYPERATIVE BS NOTED. PATIENT STATES LAST BM WAS THIS MORNING AND THAT IT WAS BLACK IN COLOR. PATIENT NPO AT THIS TIME. WNL PER PATIENT. SKIN APPEARS WNL. BED LOW, CALL LIGHT IN REACH. PATIENT EDUCATED ON UNIT, ROOM AND CALL SYSTEM. WILL CONTINUE TO MONITOR FREQUENTLY THROUGHOUT SHIFT.
[2019-09-20] MEDS ORDERED: OMEP20ER PO (14:30)
[2019-09-20] MEDS ORDERED: Prozac20 MG PO (14:31)
[2019-09-20 15:41] LABS: Hematocrit 26.8 % (37.0-53.0); Hemoglobin 8.9 g/dL (13.5-17.5)
--- NOTE | 2019-09-20 18:10 | NUR ---
SHIFT SUMMARY PATIENT REMAINED ALERT AND ORIENTED X 4. PATIENT REMAINED ON BEDREST; PATIENT REPOSITIONING SELF. PATIENT REMAINED AFEBRILE. PATIENT'S ANXIETY HAS LESSENED. CIWAS RANGED FROM 2 TO 10. PATIENT GIVEN PRN LIBRIUM OT. PATIENT REPORTED RELIEF AFTER PRN TYLENOL GIVEN FOR HEADACHE AND STOMACH PAIN. PATIENT HAS REMAINED SATTING 90% AND GREATER ON RA. LUNGS HAVE REMAINED WHEEZY T/O. NO COUGH NOTED. NICOTINE PATCH ADMINISTERED PER PATIENT REQUEST. PATIENT HAS REMAINED IN SR, HR 70S TO 90S. BP STABLE. NO BM THIS SHIFT. PATIENT NPO UNTIL DR. DURANT CHANGED TO CLEAR LIQUID SHORT TIME AGO. PATIENT HAD BROTH AND APPLE JUICE. PATIENT TO BE NPO AT 0000 FOR PLANNED SCOPE AT 1100 IN AM. URINE DARK YELLOW IN COLOR. SKIN REMAINS WNL. PROTONIX INFUSING AT 10 MLS/ HOUR. BANANA BAG COMPLETE. BED LOW, CALL LIGHT IN REACH. PATIENT HAS NO COMPLAINTS AT THIS TIME. WILL BE GIVING REPORT TO ONCOMING TANK SYSTEMS MAINTAINER NURSE SHORTLY.
--- NOTE | 2019-09-20 19:00 | NUR ---
ASSUMED CARE ASSUMED CARE OF PATIENT. AWAKE AND ALERT. ORIENTED X 3. COOPERATIVE WITH CARE. C/O FEELING MILDLY ANXIOUS. DENIES C/O NAUSEA OR PAIN AT THIS TIME. PROTONIX GTT INFUSING @ 8MG/HR (10CC/HR) PER ORDER. MONITOR SHOWS NSR, RATE 80s. BP STABLE. RA SATS STABLE. RESPIRATIONS EVEN AND UNLABORED. TOLERATING CLEAR LIQUID DIET. SEE SHIFT ASSESSEMENT FOR FULL ASSESSMENT.
--- NOTE | 2019-09-20 23:05 | NUR ---
PCU TRANSFER TRANSFERRED TO PCU 3 VIA BED. MEDICATED WITH LIBRIUM 50MG PO PRIOR TO LEAVING FOR C/O FEELING MORE ANXIOUS. CIWA 6. PROTONIX GTT CONTINUES. REPORT GIVEN TO Aamir PLASCENCIA RN.
--- NOTE | 2019-09-20 23:15 | NUR ---
ASSUMED CARE PT TRANSFERRED INTO PCU 3 FROM ICU. HE IS A&O X4, VSS, RESP UNLABORED, ON ROOM AIR. PROTONIX GTT INFUSING PER EMAR. PT WAS GIVEN PO LIBRIUM PRIOR TO TRANSFER DUE TO ANXIETY. CIWA NEGATIVE OTHER THAN MILD ANXIETY, HE IS COOPERATIVE WITH CARE. BED ALARM ON FOR SAFETY, CALL LIGHT IN REACH.
[2019-09-21 04:26] LABS: Anion Gap 4 mmol/L (6-16); Blood Urea Nitrogen 20 mg/dL (8-24); Bun/Creatinine Ratio 22.3 (12.0-20.0); CO2, Blood 26 mmol/L (21-32); Calcium, Blood 7.7 mg/dL (8.5-10.1); Chloride, Blood 109 mmol/L (98-108); Glomerular Filtration Rate >60 (60-); Glucose, Blood 107 mg/dL (70-99); Magnesium, Blood 2.2 mg/dL (1.6-2.4); Phosphorus, Blood 2.5 mg/dL (2.5-4.9); Potassium, Blood 4.4 mmol/L (3.5-5.5); Sodium, Blood 139 mmol/L (136-145)
--- NOTE | 2019-09-21 04:51 | NUR ---
SUMMARY NO ACUTE CHANGES NOTED SINCE ADMISSION TO THE FLOOR. PT HAS SLEPT WITH NO PROBLEMS, DENIES NAUSEA. PROTONIX GTT INFUSING. NO STOOLS, VOIDING WNL, NPO SINCE MIDNIGHT. NEGATIVE CIWA. BED ALARM IS ON FOR SAFETY. PT HAS BEEN NPO SINCE MIDNIGHT. WCTM, CALL LIGHT IN REACH.
[2019-09-21 07:09] LABS: HBSAG SCREEN Negative (Negative); HEP B CORE AB, TOT Negative (Negative); HEP C VIRUS AB <0.1 (0.0-0.9)
--- NOTE | 2019-09-21 07:38 | NUR ---
pt laying in bed awake a/ox3, pleasant and cooperative with care, follows commands well, states he slept pretty well, no sign of w/d, denies pain or complaints at this time, lungs have insp wheeze on left side clear on right, a bit dim in bases, resp giovanna and unlabored, no cough noted, hrr, tele in place running sr per monitor, see strip, no edema noted, ppp+2, cap refill <3sec, b/p in the 90's, pt states he runs a bit low, iv x2 to left fa, sites are clear and patent, infusing protonix as ordered, btx4, he reports last bm last night, no vomiting since tues, voids without diff, skin c/w/d, rj, magnus, call light in reach.
[2019-09-21 09:55] LABS: Hematocrit 24.4 % (37.0-53.0); Hemoglobin 7.9 g/dL (13.5-17.5)
--- NOTE | 2019-09-21 10:47 | NUR ---
PT TRANSPORTED TO [facility]. AGREES WITH PLANNED PROCEDURE. LUNG SOUNDS WITH INSPRITORY AND EXPIRATORY WHEEZES. DR. DURANT INFORMED. ORDER FOR DUO NEB GIVEN.
--- NOTE | 2019-09-21 11:30 | NUR ---
09/21/19 1130 Reny Bryant See Anesthesia record. MONITOR INTACT WITH CONTINUOUS PULSE OXIMETRY AND INTERMITTENT BP. O2 VIA N/C INTACT THROUGHOUT SEDATION/PROCEDURE. 3-LEAD EKG REVIEWED WITH PHYSICIAN PRIOR TO START OF PROCEDURE.
--- NOTE | 2019-09-21 12:29 | NUR ---
pt returned to room, he is awake, v.s. stable. wants to eat something. he is ordered a full liquid diet, this was given. will place another iv for sandostatin. call light in reach.
[2019-09-21 16:26] LABS: Hematocrit 22.4 % (37.0-53.0); Hemoglobin 7.3 g/dL (13.5-17.5)
--- NOTE | 2019-09-21 16:41 | NUR ---
after several attempts at another iv 18g was placed to owen, via u/s, pt tolerated well. he is asking about dinner, no complaints. call light in reach.
--- NOTE | 2019-09-21 17:41 | NUR ---
pt had his egd today, tolerated well, is doing ok, v.s. stable. no complaints. no acute changes this shift. call light in reach.
[2019-09-22 04:09] LABS: Hematocrit 21.1 % (37.0-53.0); Hemoglobin 6.8 g/dL (13.5-17.5); Mean Corpuscular HGB 29.8 pg (26.0-34.0); Mean Corpuscular HGB Conc 32.2 g/dL (31.5-36.5); Mean Platelet Volume 10.1 fL (9.1-12.4); Platelet Count 111 K/mm3 (150-400); RDW Coefficient Variation 14.5 % (11.7-14.2); RDW Standard Deviation 48.1 fL (35.1-46.3); Red Blood Cell Count 2.28 M/mm3 (4.30-5.90); White Blood Cell Count 3.44 K/mm3 (4.00-11.30)
[2019-09-22 04:10] LABS: Mean Corpuscular Volume 93 fL (80-100)
[2019-09-22 04:32] LABS: Anion Gap 3 mmol/L (6-16); Blood Urea Nitrogen 16 mg/dL (8-24); Bun/Creatinine Ratio 17.1 (12.0-20.0); CO2, Blood 28 mmol/L (21-32); Calcium, Blood 7.8 mg/dL (8.5-10.1); Chloride, Blood 110 mmol/L (98-108); Creatinine, Blood 0.93 mg/dL (0.60-1.20); Glomerular Filtration Rate >60 (60-); Glucose, Blood 127 mg/dL (70-99); Magnesium, Blood 2.4 mg/dL (1.6-2.4); Phosphorus, Blood 3.8 mg/dL (2.5-4.9); Potassium, Blood 4.9 mmol/L (3.5-5.5); Sodium, Blood 141 mmol/L (136-145)
--- NOTE | 2019-09-22 05:26 | NUR ---
SHIFT SUMMARY PT A&O X3; C/O HEADACHE START OF SHIFT; PROVIDER NOTIFIED NEW ORDER FOR ULTRAM X1 GIVEN; VSS; DENIED CHEST PAIN; O2 SATS >93 ON RA; SLEPT WELL IN BETWEEN INTERVENTIONS; NO DISTRESS NOTED; TOLERATING FULL LIQUID DIET; DENIES NEEDS AT THIS TIME; CALL LIGHT IN REACH; BED IN LOWEST POSITION; WILL CONTINUE TO MONITOR CLOSELY UNTIL HAND OFF TO DAY SHIFT RN.
--- NOTE | 2019-09-22 06:24 | NUR ---
UPDATE AM BLOOD DRAW RESULTS HGB 6.8; PROVIDER NOTIFIED; 1 UNIT PRBC ORDERED
[2019-09-22 12:05] LABS: Hemoglobin 7.6 g/dL (13.5-17.5)
--- NOTE | 2019-09-22 18:06 | NUR ---
PCU DAYSHIFT SUMMARY PATIENT REMAINED ALERT AND ORIENTED T/O SHIFT. VSS ON ROOM AIR. PATIENT ON BEDREST T/O SHIFT PER ORDER. URINATING IN URINAL. FOLLOWS DIRECTIONS WELL AND COOPERATIVE WITH CARE. PATIENT REPORTS ONGOING HEADACHE T/O SHIFT - RELIEVED WITH MEDICATIONS PER EMAR. PATIENT RECIEVED 1 UNIT PRBC THIS SHIFT - TOLERATING WELL. MEDICATIONS CONTINUED PER EMAR. NO ACUTE CHANGES. WILL CONTINUE TO MONITOR AND REPORT TO NOC SHIFT RN.
[2019-09-22 21:14] LABS: Hematocrit 22.6 % (37.0-53.0); Hemoglobin 7.5 g/dL (13.5-17.5)
[2019-09-23 05:36] LABS: Hemoglobin 7.7 g/dL (13.5-17.5); Mean Corpuscular HGB 30.2 pg (26.0-34.0); Mean Corpuscular HGB Conc 33.5 g/dL (31.5-36.5); Mean Corpuscular Volume 90 fL (80-100); NRBC ABSOLUTE 0.02 K/mm3 (0.00-0.02); NRBC Auto 0.4 /100 WBC (0.0-0.2); Platelet Count 120 K/mm3 (150-400); RDW Coefficient Variation 14.7 % (11.7-14.2); RDW Standard Deviation 47.7 fL (35.1-46.3); Red Blood Cell Count 2.55 M/mm3 (4.30-5.90); White Blood Cell Count 4.67 K/mm3 (4.00-11.30)
[2019-09-23 05:52] LABS: Anion Gap 5 mmol/L (6-16); Blood Urea Nitrogen 12 mg/dL (8-24); Bun/Creatinine Ratio 13.1 (12.0-20.0); CO2, Blood 27 mmol/L (21-32); Calcium, Blood 8.1 mg/dL (8.5-10.1); Chloride, Blood 108 mmol/L (98-108); Creatinine, Blood 0.92 mg/dL (0.60-1.20); Glomerular Filtration Rate >60 (60-); Glucose, Blood 132 mg/dL (70-99); Phosphorus, Blood 3.6 mg/dL (2.5-4.9); Potassium, Blood 4.1 mmol/L (3.5-5.5); Sodium, Blood 140 mmol/L (136-145)
--- NOTE | 2019-09-23 06:05 | NUR ---
SHIFT SUMMARY PT A&O; VSS; DENIES CHEST PAIN; NSR NOTED ON TELE; O2 SATS >93 ON RA; DENIES SOB; USES URINAL IN BED; CALLS APPROPRIATELY; PT SLEPT SEVERAL HOURS IN BETWEEN INTERVENTIONS; NO ACUTE CHANGES NOTED; CALL LIGHT IN REACH; BED IN LOWEST POSITION; WILL CONTINUE TO MONITOR CLOSELY UNTIL HAND OFF TO DAY SHIFT RN.
[2019-09-23] MEDS ORDERED: ACET500 PO (11:11)
--- NOTE | 2019-09-23 14:01 | NUR ---
PCU DISCHARGE SUMMARY PATIENT ALERT AND ORIENTED X4 T/O SHIFT. PATIENT EDUCATED ON DISCHARGE INSTRUCTIONS - SOFT DIET - COME BACK TO ER WITH ANY S/SX OF BLEEDING - TAKING MEDICATIONS PRESCRIBED AND KEEPING ALL FOLLOW UP APPTS. PATIENT VERBALIZED UNDERSTANDING. AMBULATED OUT OF UNIT WITH BELONGINGS IN NO ACUTE DISTRESS. IV'S D/C'D WITH CATHETERS INTACT.
[2019-09-26 15:10] LABS: HEPATITIS C QUANTITATION HCV Not Detected IU/mL (.)
== END 2019-09-23 12:53 | disposition home or self-care (01) | DRG 300 ==
LOC: ER 08:34 → PCU 11:33 → ICUW 11:33 → PCU 22:15 → ICUW 22:16 → PCU 23:05
PROVIDERS: Emergency Medicine; Internal Medicine Gastroenterology; ADMIT Internal Medicine
PROC: 0W3P8ZZ Control Bleeding in Gastrointestinal Tract, Via Natural or Artificial Opening Endoscopic (ICD-10-PCS; principal; 2019-09-21 19:30)
PROC: 30233N1 Transfusion of Nonautologous Red Blood Cells into Peripheral Vein, Percutaneous Approach (ICD-10-PCS; 2019-09-22)
DX: I86.4 Gastric varices (principal); D62 Acute posthemorrhagic anemia; I82.891 Chronic embolism and thrombosis of other specified veins; K22.10 Ulcer of esophagus without bleeding; K29.80 Duodenitis without bleeding; K25.9 Gastric ulcer, unspecified as acute or chronic, without hemorrhage or perforation; F31.9 Bipolar disorder, unspecified; F41.9 Anxiety disorder, unspecified; J44.9 Chronic obstructive pulmonary disease, unspecified; F17.210 Nicotine dependence, cigarettes, uncomplicated; R55 Syncope and collapse; F10.10 Alcohol abuse, uncomplicated; Z79.899 Other long term (current) drug therapy; Z88.8 Allergy status to other drugs, medicaments and biological substances
CPT/HCPCS: 36415; 36430; 71046; 80048; 80053; 83735; 83880; 84100; 84484; 85014; 85018; 85025; 85027; 86317; 86704; 86708; 86803; 86850; 86900; 86901; 86923; 87340; 87522; 88305; 88342; 93005; 93010; 93975; 96374; 96375; 99285-25; C9113; J0696; J2060; J2250; J2354; J2704; J3411; J3475; J7042; J7050; J7120; P9016

== ENCOUNTER → 2019-10-09 | Outpatient (CLI) | payer OTHER ==
[~2019-10-09] MED LIST changes: +Amphetamine Sal30 MG; +Amphetamine Sal30 MG PO; +Prozac20 MG PO
[2019-10-09 17:45] LABS: BASOPHILS ABSOLUTE AUTO 0.04 K/mm3 (0.00-0.23); BASOPHILS PERCENT AUTO 1 % (0-2); EOSINOPHILS ABSOLUTE AUTO 0.17 K/mm3 (0.00-0.68); EOSINOPHILS PERCENT AUTO 3 % (0-6); Hematocrit 29.3 % (37.0-53.0); Hemoglobin 9.1 g/dL (13.5-17.5); IMMATURE GRAN ABSOLUTE AUTO 0.01 K/mm3 (0.00-0.10); IMMATURE GRAN PERCENT AUTO 0 % (0-1); LYMPHOCYTES ABSOLUTE AUTO 1.31 K/mm3 (0.84-5.20); LYMPHOCYTES PERCENT AUTO 21 % (21-46); MONOCYTES ABSOLUTE AUTO 0.36 K/mm3 (0.16-1.47); MONOCYTES PERCENT AUTO 6 % (4-13); Mean Corpuscular HGB 27.1 pg (26.0-34.0); Mean Corpuscular HGB Conc 31.1 g/dL (31.5-36.5); Mean Corpuscular Volume 87 fL (80-100); NEUTROPHILS PERCENT AUTO 70 % (41-73); Platelet Count 304 K/mm3 (150-400); RDW Coefficient Variation 16.4 % (11.7-14.2); RDW Standard Deviation 53.1 fL (35.1-46.3); Red Blood Cell Count 3.36 M/mm3 (4.30-5.90); White Blood Cell Count 6.19 K/mm3 (4.00-11.30)
== END | disposition home or self-care (01) ==
PROVIDERS: Physician Assistant
DX: D64.9 Anemia, unspecified (principal)

== ENCOUNTER 2019-10-10 19:41 | Observation (INO) | payer OTHER ==
[~2019-10-10] VITALS: Ht 175.3 cm; Wt 81.7 kg
[2019-10-10 21:00] LABS: Source, Urine Clean Catch
[2019-10-10 21:04] LABS: BASOPHILS ABSOLUTE AUTO 0.08 K/mm3 (0.00-0.23); BASOPHILS PERCENT AUTO 0 % (0-2); EOSINOPHILS ABSOLUTE AUTO 0.19 K/mm3 (0.00-0.68); EOSINOPHILS PERCENT AUTO 1 % (0-6); Hematocrit 36.3 % (37.0-53.0); Hemoglobin 11.2 g/dL (13.5-17.5); IMMATURE GRAN ABSOLUTE AUTO 0.09 K/mm3 (0.00-0.10); IMMATURE GRAN PERCENT AUTO 1 % (0-1); LYMPHOCYTES ABSOLUTE AUTO 1.99 K/mm3 (0.84-5.20); LYMPHOCYTES PERCENT AUTO 11 % (21-46); MONOCYTES ABSOLUTE AUTO 0.79 K/mm3 (0.16-1.47); MONOCYTES PERCENT AUTO 4 % (4-13); Mean Corpuscular HGB 26.7 pg (26.0-34.0); Mean Corpuscular HGB Conc 30.9 g/dL (31.5-36.5); Mean Corpuscular Volume 86 fL (80-100); Mean Platelet Volume 9.2 fL (9.1-12.4); NEUTROPHILS ABSOLUTE AUTO 15.84 K/mm3 (1.96-9.15); NEUTROPHILS PERCENT AUTO 83 % (41-73); Platelet Count 386 K/mm3 (150-400); RDW Standard Deviation 53.7 fL (35.1-46.3); White Blood Cell Count 18.98 K/mm3 (4.00-11.30)
[2019-10-10 21:07] LABS: Bilirubin, Urine Neg (Neg); Blood, Urine Neg (Neg); Glucose Qualitative, Urine Neg (Neg); Ketones, Urine Neg (Neg); Leukocyte Esterase, Urine Neg (Neg); Nitrite, Urine Neg (Neg); Protein, Urine 1+ (Neg); Specific Gravity, Urine 1.015 (1.003-1.022); Urobilinogen, Urine NORM (Normal)
[2019-10-10 21:16] LABS: Appearance, Urine Clear (Clear); Color, Urine Yellow (P-Yellow)
[2019-10-10 21:21] LABS: U Amphetamine Screen DETECTED; U Barbituate Screen Not Detected; U Benzodiazapine Screen DETECTED; U Buprenorphine Screen Not Detected; U Cannabinoids Screen DETECTED; U Cocaine Screen Not Detected; U Methadone Screen Not Detected; U Methamphetamine Screen DETECTED; U Opiates Screen Not Detected; U Oxycodone Screen Not Detected; U Phencyclidine Screen Not Detected; U Propoxyphene Screen Not Detected
[2019-10-10 21:26] LABS: Salicylate 1.8 mg/dL (2.8-20.0)
[2019-10-10 21:27] LABS: Alanine Aminotransfer (ALT/SGP 17 U/L (12-78); Albumin, Blood 4.3 g/dL (3.4-5.0); Alk Phos 82 U/L (50-136); Anion Gap 10 mmol/L (6-16); Aspartate Aminotrans (AST/SGOT 16 U/L (12-37); Bilirubin, Total 0.3 mg/dL (0.1-1.0); Blood Urea Nitrogen 17 mg/dL (8-24); Bun/Creatinine Ratio 16.7 (12.0-20.0); CO2, Blood 24 mmol/L (21-32); Calcium, Blood 8.6 mg/dL (8.5-10.1); Chloride, Blood 111 mmol/L (98-108); Creatinine, Blood 1.02 mg/dL (0.60-1.20); Globulin, Blood 4.4 g/dL (2.2-4.0); Glomerular Filtration Rate >60 (60-); Glucose, Blood 66 mg/dL (70-99); Potassium, Blood 4.3 mmol/L (3.5-5.5); Sodium, Blood 145 mmol/L (136-145); Total Protein, Blood 8.7 g/dL (6.4-8.2)
[2019-10-10 21:41] LABS: Ethanol (Alcohol), Blood, Med 317 mg/dL
[2019-10-10 21:42] LABS: Acetaminophen, Random <2.0 ug/mL (10.0-30.0)
== END 2019-10-11 10:00 | disposition home or self-care (01) ==
LOC: ER 19:41 → EOR 19:42
PROVIDERS: ADMIT Emergency Medicine
DX: F10.129 Alcohol abuse with intoxication, unspecified (principal); F15.129 Other stimulant abuse with intoxication, unspecified; F19.10 Other psychoactive substance abuse, uncomplicated; F23 Brief psychotic disorder; J45.909 Unspecified asthma, uncomplicated; I10 Essential (primary) hypertension; F32.9 Major depressive disorder, single episode, unspecified; F17.210 Nicotine dependence, cigarettes, uncomplicated; Z88.8 Allergy status to other drugs, medicaments and biological substances; Z79.899 Other long term (current) drug therapy
CPT/HCPCS: 36415; 80053; 85025; 96372; 99285-25; G0378; G0480; J1200; J1630; J2060

== ENCOUNTER 2019-10-14 16:12 | Emergency (ER) | payer OTHER ==
[~2019-10-14] VITALS: Ht 175.3 cm; Wt 77.1 kg
[2019-10-14] MEDS ORDERED: Cleocin HCl300 MG PO (16:28)
== END 2019-10-14 16:46 | disposition home or self-care (01) ==
LOC: ER 16:12
DX: L08.9 Local infection of the skin and subcutaneous tissue, unspecified (principal); F31.9 Bipolar disorder, unspecified; J45.909 Unspecified asthma, uncomplicated; I10 Essential (primary) hypertension; F41.9 Anxiety disorder, unspecified; Z86.19 Personal history of other infectious and parasitic diseases; Z88.8 Allergy status to other drugs, medicaments and biological substances; Z79.899 Other long term (current) drug therapy; F25.9 Schizoaffective disorder, unspecified; F17.210 Nicotine dependence, cigarettes, uncomplicated
CPT/HCPCS: 99282

== ENCOUNTER 2020-02-11 11:26 | Emergency (ER) | payer OTHER ==
[~2020-02-11] VITALS: Ht 172.7 cm; Wt 77.1 kg
[~2020-02-11 11:26] MED LIST changes: +LITH300ER PO; +Prednisone20 MG PO; +QUET25 PO
[2020-02-11] MEDS ORDERED: OXYC5 PO (13:39)
== END 2020-02-11 13:52 | disposition home or self-care (01) ==
LOC: ER 11:26
DX: S92.331A Displaced fracture of third metatarsal bone, right foot, initial encounter for closed fracture (principal); S92.341A Displaced fracture of fourth metatarsal bone, right foot, initial encounter for closed fracture
CPT/HCPCS: 29515; 73630; 99283-25

== ENCOUNTER 2020-02-27 13:48 | Day surgery (SDC) | payer OTHER ==
[~2020-02-27] VITALS: Ht 172.7 cm; Wt 79.7 kg
[~2020-02-27 13:48] MED LIST changes: +OXYC5 PO
[2020-02-27] MEDS ORDERED: OMEP20ER PO (14:36)
== END 2020-02-27 18:22 | disposition home or self-care (01) ==
LOC: ORSCSDS 13:48
PROVIDERS: Podiatrist Foot & Ankle Surgery
PROC: 0QSN04Z Reposition Right Metatarsal with Internal Fixation Device, Open Approach (ICD-10-PCS; principal; 2020-02-27 15:15)
DX: S92.321A Displaced fracture of second metatarsal bone, right foot, initial encounter for closed fracture (principal); S92.331A Displaced fracture of third metatarsal bone, right foot, initial encounter for closed fracture; S92.344A Nondisplaced fracture of fourth metatarsal bone, right foot, initial encounter for closed fracture; G47.33 Obstructive sleep apnea (adult) (pediatric); F17.210 Nicotine dependence, cigarettes, uncomplicated; F25.9 Schizoaffective disorder, unspecified; Z79.899 Other long term (current) drug therapy
CPT/HCPCS: A9270; C1713; J0171; J0690; J1100; J2060; J2250; J2405; J2704; J3010; J7120

== ENCOUNTER 2020-04-14 10:00 | Emergency (ER) | payer OTHER ==
[~2020-04-14] VITALS: Ht 172.7 cm; Wt 77.1 kg
[2020-04-14] MEDS ORDERED: QUET200 PO (11:23)
[2020-04-14] MEDS ORDERED: SEROQUEL50 MG PO (11:23)
== END 2020-04-14 11:34 | disposition home or self-care (01) ==
LOC: ER 10:00
DX: F41.9 Anxiety disorder, unspecified (principal); Z76.0 Encounter for issue of repeat prescription; F31.9 Bipolar disorder, unspecified; I10 Essential (primary) hypertension; F25.9 Schizoaffective disorder, unspecified; F17.210 Nicotine dependence, cigarettes, uncomplicated; Z79.899 Other long term (current) drug therapy; Z88.8 Allergy status to other drugs, medicaments and biological substances
CPT/HCPCS: 99282

== ENCOUNTER 2020-06-07 21:40 | Observation (INO) | payer OTHER ==
[~2020-06-07] VITALS: Ht 165.1 cm; Wt 68.0 kg
[~2020-06-07 21:40] MED LIST changes: +SEROQUEL50 MG PO
[2020-06-07 22:53] LABS: BASOPHILS ABSOLUTE AUTO 0.03 K/mm3 (0.00-0.23); BASOPHILS PERCENT AUTO 0 % (0-2); EOSINOPHILS ABSOLUTE AUTO 0.03 K/mm3 (0.00-0.68); EOSINOPHILS PERCENT AUTO 0 % (0-6); Hematocrit 35.5 % (37.0-53.0); Hemoglobin 10.8 g/dL (13.5-17.5); IMMATURE GRAN ABSOLUTE AUTO 0.02 K/mm3 (0.00-0.10); IMMATURE GRAN PERCENT AUTO 0 % (0-1); LYMPHOCYTES ABSOLUTE AUTO 0.99 K/mm3 (0.84-5.20); LYMPHOCYTES PERCENT AUTO 15 % (21-46); MONOCYTES ABSOLUTE AUTO 0.24 K/mm3 (0.16-1.47); MONOCYTES PERCENT AUTO 4 % (4-13); Mean Corpuscular HGB 22.2 pg (26.0-34.0); Mean Corpuscular HGB Conc 30.4 g/dL (31.5-36.5); Mean Corpuscular Volume 73 fL (80-100); Mean Platelet Volume 9.8 fL (9.1-12.4); NEUTROPHILS ABSOLUTE AUTO 5.49 K/mm3 (1.96-9.15); NEUTROPHILS PERCENT AUTO 81 % (41-73); Platelet Count 274 K/mm3 (150-400); RDW Coefficient Variation 22.5 % (11.7-14.2); RDW Standard Deviation 58.4 fL (35.1-46.3); Red Blood Cell Count 4.86 M/mm3 (4.30-5.90)
[2020-06-07 23:20] LABS: Acetaminophen, Random <2.0 ug/mL (10.0-30.0); Alanine Aminotransfer (ALT/SGP 15 U/L (12-78); Albumin, Blood 3.9 g/dL (3.4-5.0); Albumin/Globulin Ratio 1.1 (0.8-1.8); Alk Phos 115 U/L (50-136); Anion Gap 13 mmol/L (6-16); Aspartate Aminotrans (AST/SGOT 15 U/L (12-37); Bilirubin, Total 0.3 mg/dL (0.1-1.0); Blood Urea Nitrogen 16 mg/dL (8-24); Bun/Creatinine Ratio 12.9 (12.0-20.0); CO2, Blood 21 mmol/L (21-32); Calcium, Blood 8.5 mg/dL (8.5-10.1); Chloride, Blood 101 mmol/L (98-108); Creatinine, Blood 1.24 mg/dL (0.60-1.20); Globulin, Blood 3.7 g/dL (2.2-4.0); Glomerular Filtration Rate >60 (60-); Glucose, Blood 163 mg/dL (70-99); Potassium, Blood 3.2 mmol/L (3.5-5.5); Salicylate 2.5 mg/dL (2.8-20.0); Sodium, Blood 135 mmol/L (136-145); Total Protein, Blood 7.6 g/dL (6.4-8.2)
[2020-06-07 23:32] LABS: Ethanol (Alcohol), Blood, Med 433 mg/dL
[2020-06-08 00:02] LABS: Source, Urine Voided
[2020-06-08 00:15] LABS: Bilirubin, Urine Neg (Neg); Blood, Urine Neg (Neg); Glucose Qualitative, Urine Neg (Neg); Ketones, Urine Neg (Neg); Leukocyte Esterase, Urine 1+ (Neg); Nitrite, Urine Neg (Neg); Protein, Urine Neg (Neg); Specific Gravity, Urine 1.015 (1.003-1.022); Urobilinogen, Urine NORM (Normal)
[2020-06-08 00:26] LABS: U Amphetamine Screen DETECTED; U Barbituate Screen Not Detected; U Benzodiazapine Screen DETECTED; U Buprenorphine Screen Not Detected; U Cannabinoids Screen DETECTED; U Cocaine Screen Not Detected; U Methadone Screen Not Detected; U Methamphetamine Screen DETECTED; U Opiates Screen Not Detected; U Oxycodone Screen Not Detected; U Phencyclidine Screen Not Detected; U Propoxyphene Screen Not Detected
[2020-06-08 00:33] LABS: Appearance, Urine Clear (Clear); Color, Urine Yellow (P-Yellow)
[2020-06-08 00:34] LABS: Bacteria Rare /hpf; Red Blood Cells, Urine Not Seen /hpf (0-2); Squamous Epithelial Cells Rare /hpf (Few)
== END 2020-06-08 09:49 | disposition home or self-care (01) ==
LOC: ER 21:40 → EOR 21:41
PROVIDERS: ADMIT Emergency Medicine
DX: T14.91XA Suicide attempt, initial encounter (principal); F31.9 Bipolar disorder, unspecified; J45.909 Unspecified asthma, uncomplicated; I10 Essential (primary) hypertension; F25.9 Schizoaffective disorder, unspecified; F15.20 Other stimulant dependence, uncomplicated; F41.9 Anxiety disorder, unspecified; F17.200 Nicotine dependence, unspecified, uncomplicated
CPT/HCPCS: 36415; 80053; 81001; 85025; 87086; 96372; 99285-25; A9270; G0378; G0480; Q3014

== ENCOUNTER 2020-10-30 18:30 | Emergency (ER) | payer OTHER ==
[~2020-10-30] VITALS: Ht 172.7 cm; Wt 70.3 kg
[2020-10-30] MEDS ORDERED: SULTRIDS PO (20:37)
== END 2020-10-30 20:46 | disposition home or self-care (01) ==
LOC: ER 18:30
DX: L97.519 Non-pressure chronic ulcer of other part of right foot with unspecified severity (principal); Z88.8 Allergy status to other drugs, medicaments and biological substances; Z79.899 Other long term (current) drug therapy; Z87.891 Personal history of nicotine dependence
CPT/HCPCS: 73660; 99283-25; A9270

== ENCOUNTER 2020-11-04 13:53 | Emergency (ER) | payer OTHER ==
[~2020-11-04] VITALS: Ht 172.7 cm; Wt 68.0 kg
[~2020-11-04 13:53] MED LIST changes: +SULTRIDS PO
[2020-11-04] MEDS ORDERED: QUET200 PO (15:07)
[2020-11-04] MEDS ORDERED: OMEP20ER PO (15:07)
[2020-11-04] MEDS ORDERED: Diclofenac Sodi50 MG PO (15:07)
== END 2020-11-04 16:00 | disposition home or self-care (01) ==
LOC: ER 13:53
DX: M79.674 Pain in right toe(s) (principal); Z76.0 Encounter for issue of repeat prescription; Z88.8 Allergy status to other drugs, medicaments and biological substances; Z79.899 Other long term (current) drug therapy; Z87.891 Personal history of nicotine dependence
CPT/HCPCS: 99281; A9270

== ENCOUNTER 2020-11-10 12:47 | Emergency (ER) | payer OTHER ==
[~2020-11-10] VITALS: Ht 172.7 cm; Wt 74.8 kg
[~2020-11-10 12:47] MED LIST changes: +Diclofenac Sodi50 MG PO
== END 2020-11-10 13:40 | disposition home or self-care (01) ==
LOC: ER 12:47
DX: R45.1 Restlessness and agitation (principal); Z88.8 Allergy status to other drugs, medicaments and biological substances
CPT/HCPCS: 99285

== ENCOUNTER 2020-11-16 10:43 | Emergency (ER) | payer OTHER ==
[~2020-11-16] VITALS: Ht 172.7 cm; Wt 72.6 kg
[2020-11-16 11:29] LABS: BASOPHILS ABSOLUTE AUTO 0.03 K/mm3 (0.00-0.23); BASOPHILS PERCENT AUTO 0 % (0-2); EOSINOPHILS ABSOLUTE AUTO 0.26 K/mm3 (0.00-0.68); EOSINOPHILS PERCENT AUTO 2 % (0-6); Hematocrit 37.3 % (37.0-53.0); Hemoglobin 11.6 g/dL (13.5-17.5); IMMATURE GRAN ABSOLUTE AUTO 0.06 K/mm3 (0.00-0.10); IMMATURE GRAN PERCENT AUTO 1 % (0-1); LYMPHOCYTES ABSOLUTE AUTO 1.26 K/mm3 (0.84-5.20); LYMPHOCYTES PERCENT AUTO 11 % (21-46); MONOCYTES ABSOLUTE AUTO 0.78 K/mm3 (0.16-1.47); MONOCYTES PERCENT AUTO 7 % (4-13); Mean Corpuscular HGB 24.7 pg (26.0-34.0); Mean Corpuscular HGB Conc 31.1 g/dL (31.5-36.5); Mean Corpuscular Volume 80 fL (80-100); Mean Platelet Volume 10.3 fL (9.1-12.4); NEUTROPHILS ABSOLUTE AUTO 8.95 K/mm3 (1.96-9.15); NEUTROPHILS PERCENT AUTO 79 % (41-73); Platelet Count 217 K/mm3 (150-400); RDW Coefficient Variation 21.2 % (11.7-14.2); RDW Standard Deviation 58.4 fL (35.1-46.3); Red Blood Cell Count 4.69 M/mm3 (4.30-5.90); White Blood Cell Count 11.34 K/mm3 (4.00-11.30)
[2020-11-16 11:50] LABS: Alanine Aminotransfer (ALT/SGP 16 U/L (12-78); Albumin/Globulin Ratio 0.7 (0.8-1.8); Alk Phos 160 U/L (50-136); Anion Gap 8 mmol/L (6-16); Aspartate Aminotrans (AST/SGOT 16 U/L (12-37); Bilirubin, Total 0.4 mg/dL (0.1-1.0); Blood Urea Nitrogen 16 mg/dL (8-24); Bun/Creatinine Ratio 12.2 (12.0-20.0); CO2, Blood 22 mmol/L (21-32); Calcium, Blood 8.9 mg/dL (8.5-10.1); Chloride, Blood 105 mmol/L (98-108); Creatinine, Blood 1.31 mg/dL (0.60-1.20); Globulin, Blood 4.6 g/dL (2.2-4.0); Glomerular Filtration Rate >60 (60-); Glucose, Blood 151 mg/dL (70-99); Sodium, Blood 135 mmol/L (136-145); Total Protein, Blood 7.6 g/dL (6.4-8.2)
[2020-11-16 13:31] LABS: Source, Urine Voided
[2020-11-16 13:36] LABS: Appearance, Urine Clear (Clear); Bilirubin, Urine Neg (Neg); Blood, Urine Neg (Neg); Color, Urine Yellow (P-Yellow); Glucose Qualitative, Urine Neg (Neg); Ketones, Urine Neg (Neg); Leukocyte Esterase, Urine Neg (Neg); Nitrite, Urine Neg (Neg); Protein, Urine Neg (Neg); Specific Gravity, Urine 1.015 (1.003-1.022); Urobilinogen, Urine NORM (Normal); pH, Urine 6.5 (5.0-8.0)
[2020-11-16] MEDS ORDERED: AMOX-CLAV 875-1 EAC3 PO (14:21)
== END 2020-11-16 14:32 | disposition home or self-care (01) ==
LOC: ER 10:43
PROVIDERS: Emergency Medicine; Physician Assistant
DX: K52.9 Noninfective gastroenteritis and colitis, unspecified (principal)
CPT/HCPCS: 36415; 74177; 80053; 81000; 81003; 83690; 85025; 93005; 93010; 96374; 99284-25; J2405; J7030; Q9967

== ENCOUNTER → 2020-11-20 | Outpatient (CLI) | payer OTHER ==
[~2020-11-20] MED LIST changes: +AMOX-CLAV 875-1 EAC3 PO; +SUCRALFATE1 G7 PO
== END ==
LOC: LAB 12:15 → LAB SHORT 12:15
DX: R10.10 Upper abdominal pain, unspecified (principal); Z88.8 Allergy status to other drugs, medicaments and biological substances
CPT/HCPCS: 87086

== ENCOUNTER 2020-11-29 12:18 | Emergency (ER) | payer OTHER ==
[~2020-11-29 12:18] MED LIST changes: -SUCRALFATE1 G7 PO
[2020-11-29] MEDS ORDERED: SUCRALFATE1 G7 PO (18:14)
== END 2020-11-29 13:20 | disposition left against medical advice (07) ==
LOC: ER 12:18
DX: Z53.21 Procedure and treatment not carried out due to patient leaving prior to being seen by health care provider (principal)

== ENCOUNTER 2020-11-29 13:33 | Observation (INO) | payer OTHER ==
[~2020-11-29] VITALS: Ht 175.3 cm; Wt 65.8 kg
[2020-11-29 15:59] LABS: Source, Urine Clean Catch
[2020-11-29 16:08] LABS: BASOPHILS ABSOLUTE AUTO 0.08 K/mm3 (0.00-0.23); BASOPHILS PERCENT AUTO 1 % (0-2); EOSINOPHILS ABSOLUTE AUTO 0.45 K/mm3 (0.00-0.68); EOSINOPHILS PERCENT AUTO 6 % (0-6); Hematocrit 38.5 % (37.0-53.0); Hemoglobin 12.1 g/dL (13.5-17.5); IMMATURE GRAN ABSOLUTE AUTO 0.02 K/mm3 (0.00-0.10); IMMATURE GRAN PERCENT AUTO 0 % (0-1); LYMPHOCYTES PERCENT AUTO 23 % (21-46); MONOCYTES ABSOLUTE AUTO 0.34 K/mm3 (0.16-1.47); MONOCYTES PERCENT AUTO 4 % (4-13); Mean Corpuscular HGB Conc 31.4 g/dL (31.5-36.5); Mean Corpuscular Volume 80 fL (80-100); Mean Platelet Volume 9.2 fL (9.1-12.4); NEUTROPHILS ABSOLUTE AUTO 5.37 K/mm3 (1.96-9.15); NEUTROPHILS PERCENT AUTO 66 % (41-73); Platelet Count 567 K/mm3 (150-400); RDW Coefficient Variation 22.5 % (11.7-14.2); RDW Standard Deviation 63.8 fL (35.1-46.3); Red Blood Cell Count 4.84 M/mm3 (4.30-5.90); White Blood Cell Count 8.16 K/mm3 (4.00-11.30)
[2020-11-29 16:15] LABS: Appearance, Urine Clear (Clear); Bilirubin, Urine Neg (Neg); Blood, Urine Neg (Neg); Color, Urine Yellow (P-Yellow); Glucose Qualitative, Urine Neg (Neg); Ketones, Urine Neg (Neg); Leukocyte Esterase, Urine Neg (Neg); Nitrite, Urine Neg (Neg); Protein, Urine Neg (Neg); Urobilinogen, Urine NORM (Normal)
[2020-11-29 16:37] LABS: Salicylate <1.7 mg/dL (2.8-20.0)
[2020-11-29 16:38] LABS: Alanine Aminotransfer (ALT/SGP 15 U/L (12-78); Albumin, Blood 3.9 g/dL (3.4-5.0); Albumin/Globulin Ratio 0.9 (0.8-1.8); Alk Phos 78 U/L (50-136); Anion Gap 5 mmol/L (6-16); Aspartate Aminotrans (AST/SGOT 27 U/L (12-37); Bilirubin, Total 0.3 mg/dL (0.1-1.0); Blood Urea Nitrogen 15 mg/dL (8-24); Bun/Creatinine Ratio 16.1 (12.0-20.0); CO2, Blood 27 mmol/L (21-32); Calcium, Blood 8.6 mg/dL (8.5-10.1); Chloride, Blood 111 mmol/L (98-108); Creatinine, Blood 0.93 mg/dL (0.60-1.20); Ethanol (Alcohol), Blood, Med 358 mg/dL; Globulin, Blood 4.5 g/dL (2.2-4.0); Glomerular Filtration Rate >60 (60-); Glucose, Blood 72 mg/dL (70-99); Potassium, Blood 3.9 mmol/L (3.5-5.5); Sodium, Blood 143 mmol/L (136-145); Total Protein, Blood 8.4 g/dL (6.4-8.2)
[2020-11-29 16:38] LABS: U Amphetamine Screen Not Detected; U Barbituate Screen Not Detected; U Benzodiazapine Screen Not Detected; U Buprenorphine Screen Not Detected; U Cannabinoids Screen DETECTED; U Cocaine Screen Not Detected; U Methadone Screen Not Detected; U Methamphetamine Screen Not Detected; U Opiates Screen Not Detected; U Oxycodone Screen Not Detected; U Phencyclidine Screen Not Detected; U Propoxyphene Screen Not Detected
[2020-11-29 16:39] LABS: Acetaminophen, Random <2.0 ug/mL (10.0-30.0)
[2020-11-29 17:10] LABS: SARS-Cov-2 (COVID-19) PCR, MMC NEGATIVE (NEGATIVE)
[2020-11-29] MEDS ORDERED: SUCRALFATE1 G7 PO (18:14)
== END 2020-11-29 22:25 | disposition home or self-care (01) ==
LOC: ER 13:33 → EOR 13:34
PROVIDERS: ADMIT Emergency Medicine
DX: S09.90XA Unspecified injury of head, initial encounter (principal); W19.XXXA Unspecified fall, initial encounter; F10.129 Alcohol abuse with intoxication, unspecified; I10 Essential (primary) hypertension; J45.909 Unspecified asthma, uncomplicated; Z87.891 Personal history of nicotine dependence; Z88.8 Allergy status to other drugs, medicaments and biological substances; Z79.899 Other long term (current) drug therapy; Z20.822 Contact with and (suspected) exposure to COVID-19
CPT/HCPCS: 70450; 72125; 80053; 81003; 85025; 90471; 90714; 96372-59; 99285-25; G0378; G0480; J1630; U0004

== ENCOUNTER 2020-12-06 13:47 | Emergency (ER) | payer OTHER ==
[~2020-12-06] VITALS: Ht 172.7 cm; Wt 65.8 kg
[~2020-12-06 13:47] MED LIST changes: +SUCRALFATE1 G7 PO
== END 2020-12-06 14:27 | disposition home or self-care (01) ==
LOC: ER 13:47
DX: Z00.00 Encounter for general adult medical examination without abnormal findings (principal); I10 Essential (primary) hypertension; Z88.8 Allergy status to other drugs, medicaments and biological substances; Z79.899 Other long term (current) drug therapy
CPT/HCPCS: 99282

== ENCOUNTER 2022-04-12 16:15 | Observation (INO) | payer OTHER ==
[~2022-04-12] VITALS: Ht 172.7 cm; Wt 81.2 kg
[2022-04-12 17:46] LABS: BASOPHILS ABSOLUTE AUTO 0.06 K/mm3 (0.00-0.23); BASOPHILS PERCENT AUTO 1 % (0-2); EOSINOPHILS ABSOLUTE AUTO 0.77 K/mm3 (0.00-0.68); EOSINOPHILS PERCENT AUTO 10 % (0-6); Hematocrit 34.1 % (37.0-53.0); Hemoglobin 11.2 g/dL (13.5-17.5); IMMATURE GRAN ABSOLUTE AUTO 0.02 K/mm3 (0.00-0.10); IMMATURE GRAN PERCENT AUTO 0 % (0-1); LYMPHOCYTES ABSOLUTE AUTO 2.67 K/mm3 (0.84-5.20); LYMPHOCYTES PERCENT AUTO 36 % (21-46); MONOCYTES ABSOLUTE AUTO 0.42 K/mm3 (0.16-1.47); MONOCYTES PERCENT AUTO 6 % (4-13); Mean Corpuscular HGB 29.6 pg (26.0-34.0); Mean Corpuscular HGB Conc 32.8 g/dL (31.5-36.5); Mean Corpuscular Volume 90 fL (80-100); Mean Platelet Volume 9.5 fL (9.1-12.4); NEUTROPHILS ABSOLUTE AUTO 3.54 K/mm3 (1.96-9.15); NEUTROPHILS PERCENT AUTO 47 % (41-73); Platelet Count 222 K/mm3 (150-400); Red Blood Cell Count 3.79 M/mm3 (4.30-5.90); White Blood Cell Count 7.48 K/mm3 (4.00-11.30)
[2022-04-12 18:18] LABS: Acetaminophen, Random <2.0 ug/mL (10.0-30.0); Salicylate <1.7 mg/dL (2.8-20.0)
[2022-04-12 18:33] LABS: Alanine Aminotransfer (ALT/SGP 20 U/L (12-78); Albumin, Blood 3.5 g/dL (3.4-5.0); Albumin/Globulin Ratio 1.1 (0.8-1.8); Alk Phos 61 U/L (50-136); Anion Gap 6 mmol/L (6-16); Aspartate Aminotrans (AST/SGOT 22 U/L (12-37); Bilirubin, Total 0.2 mg/dL (0.1-1.0); Blood Urea Nitrogen 8 mg/dL (8-24); Bun/Creatinine Ratio 7.8 (12.0-20.0); CO2, Blood 28 mmol/L (21-32); Calcium, Blood 8.4 mg/dL (8.5-10.1); Chloride, Blood 103 mmol/L (98-108); Creatinine, Blood 1.03 mg/dL (0.60-1.20); Ethanol (Alcohol), Blood, Med 430 mg/dL; Globulin, Blood 3.1 g/dL (2.2-4.0); Glomerular Filtration Rate 87 (60-); Glucose, Blood 115 mg/dL (70-99); Potassium, Blood 3.5 mmol/L (3.5-5.5); Sodium, Blood 137 mmol/L (136-145); Total Protein, Blood 6.6 g/dL (6.4-8.2)
[2022-04-12 19:02] LABS: Influenza A, PCR NEGATIVE (NEGATIVE); Influenza B, PCR NEGATIVE (NEGATIVE); Resp Syncytial Virus, PCR NEGATIVE (NEGATIVE); SARS-Cov-2 (COVID-19) PCR, MMC NEGATIVE (NEGATIVE)
== END 2022-04-13 10:52 | disposition home or self-care (01) ==
LOC: ER 16:15 → EOR 16:16
PROVIDERS: ADMIT Emergency Medicine
DX: F10.129 Alcohol abuse with intoxication, unspecified (principal); F25.1 Schizoaffective disorder, depressive type; J45.909 Unspecified asthma, uncomplicated; F17.210 Nicotine dependence, cigarettes, uncomplicated; Z96.642 Presence of left artificial hip joint; Z20.822 Contact with and (suspected) exposure to COVID-19; Z88.8 Allergy status to other drugs, medicaments and biological substances
CPT/HCPCS: 0241U; 80053; 84443; 85025; A9270; G0480

== ENCOUNTER 2022-04-17 09:48 | Emergency (ER) | payer OTHER ==
[~2022-04-17] VITALS: Ht 175.3 cm; Wt 74.8 kg
[2022-04-17] MEDS ORDERED: IBUP800 PO (10:52)
== END 2022-04-17 11:00 | disposition home or self-care (01) ==
LOC: ER 09:48
DX: S20.211A Contusion of right front wall of thorax, initial encounter (principal); M54.9 Dorsalgia, unspecified; W01.0XXA Fall on same level from slipping, tripping and stumbling without subsequent striking against object, initial encounter; Y92.828 Other wilderness area as the place of occurrence of the external cause; Z88.8 Allergy status to other drugs, medicaments and biological substances; Z79.899 Other long term (current) drug therapy; Z96.642 Presence of left artificial hip joint; Z87.891 Personal history of nicotine dependence
CPT/HCPCS: 71101; 73502